=== PATIENT | male | born 1965 | race Caucasian/White ===

== ENCOUNTER → 2017-11-15 | Outpatient (CLI) | payer MEDICARE ==
--- NOTE | 2017-11-17 10:02 | MR ---
EXAMINATION TYPE: MR brain/cspine wo/w DATE OF EXAM: 11/15/2017 COMPARISON: 03/16/2008 HISTORY: Body twitching, pt states Parkinsons runs in the family TECHNIQUE: Multiplanar, multisequence images of the brain and brainstem is performed without and with IV contras t, utilizing 9.5 mL intravenous Gadavist . FINDINGS: Diffusion weighted images demonstrate no evidence of a recent infarct or other diffusion ab normalityThe ventricular system and cisternal spaces are normal in size and appearance. The brain vo lume is age appropriate. Midline structures demonstrate normal morphology. The craniocervical junction appears within normal limits. Post contrast images demonstrate no abnormal enhancement. The dural venous sinuses appear pa tent. There are severe changes of chronic sinusitis WHITE MATTER: There are approximately 20 areas of abnormal signal the white matter. No lesions perpendicular to system. No callosal lesions. No enhancing lesions Lesions all measure less than 5 mm. IMPRESSION: 1. Severe chronic sinusitis. 2. Mild nonspecific white matter changes can be seen with migraine headaches, hypertension, remote mi crovascular ischemia. Demyelinating process not excluded. EXAMINATION TYPE: MR brain/cspine wo/w DATE OF EXAM: 11/15/2017 COMPARISON: NONE HISTORY: Body twitching, pt states Parkinsons runs in the family TECHNIQUE: T1 sagittal and coronal, T2 sagittal, and gradient echo axial, postcontrast T1 axial and s agittal views of the cervical spine are submitted. Contrast: 9.5 mL Gadavist FINDINGS: The cranial cervical junction is preserved. There is no abnormal signal seen within the sp inal cord or paraspinal soft tissues. There is a loss of the normal cervical lordosis with moderate to severe degenerative disc disease inv olving levels C3-C7. At C2-3 there is facet arthropathy and mild posterior spondylosis with minimal disc bulging. No chris inal encroachment or canal stenosis. At C3-4 there is uncovertebral joint hypertrophy is marked on the right with facet arthropathy result in moderate to severe right foraminal encroachment. No disc herniation or canal stenosis. No foramin al encroachment. At C4-5 there is central broad-based disc bulging slightly greater paracentrally the left. Productive uncovertebral joint hypertrophy and mild facet arthropathy. There is borderline central stenosis and moderate bilateral foraminal encroachment greater on the left. At C5-6 there is diffuse disc bulging and right paracentral and lateral focal disc herniation capped by spur with uncovertebral joint projecting resulting in spinal cord contact along the anterior later al margin on the right and severe right-sided foraminal encroachment. There is moderate to severe lef t foraminal encroachment. There is moderate central canal stenosis. At C6-7 there is diffuse disc bulging with uncovertebral joint hypertrophy. Moderate to severe bilate ral foraminal encroachment greater on the left with facet arthropathy. No central stenosis. At C7-T1 there is minimal posterior disc bulging and spondylosis. No foraminal encroachment or canal stenosis. No disc herniation Incidental note is made of a left thyroid nodule measuring 7 mm. IMPRESSION: 1. Multilevel severe degenerative disc disease with hypertrophic changes of the uncovertebral joints result in multilevel foraminal encroachment. 2. There is a focal disc osteophyte complex paracentrally and laterally to the right at C5-C6 which r esults in severe right-sided foraminal encroachment likely compressing the nerve root. There also is anterior lateral impression upon the spinal cord at this level. 3. Multilevel significant foraminal encroachment as discussed above.
--- NOTE | 2017-11-17 10:50 | MR ---
EXAMINATION TYPE: MR lumbar spine wo/w con DATE OF EXAM: 11/15/2017 COMPARISON: 11/16/2009 Contrast: 9.5 abnormal Gadavist HISTORY: Body twitching, pt states Parkinsons runs in the family TECHNIQUE: T1 and T2 axial and sagittal, postcontrast T1 axial and sagittal images of the lumbar spi ne are submitted. FINDINGS: There is no abnormal signal seen within the visualized spinal cord or paraspinal soft tissu es. At L1-2 there is broad-based central disc bulging with mild effacement of thecal sac. Hypertrophic ch anges facets. Neural foramina remain patent. At L2-3 there is compressive disc bulging greater paracentrally and laterally the right. There is fac et arthropathy but no central neural foramina remain patent. At L3-4 there is circumferential disc bulging and hypertrophic change of the facets. No discrete sahil iation, canal stenosis or foraminal At L4-5 there is circumferential disc bulging. There is advanced facet arthropathy. There is moderate bilateral foraminal encroachment and mild central stenosis. Previously seen disc protrusion less we ll-seen on today's exam. At L5-S1 there is facet arthropathy. No disc herniation or canal stenosis. No foraminal encroachment . There is multilevel moderate degenerative disc disease extending from levels L1-S1. Loss of disc sign al and space noted. Findings are similar to the prior exam. IMPRESSION: 1. Multilevel degenerative disc disease and disc bulging as discussed above. Most marked findings see n at L4-5 with mild central stenosis and moderate bilateral foraminal encroachment. 2. Multilevel facet arthropathy.
== END ==
LOC: RADMRIMAIN 15:54
PROVIDERS: ATTEND Nurse Practitioner Adult Health
DX: R25.1 Tremor, unspecified (principal); R53.1 Weakness; Z86.73 Personal history of transient ischemic attack (TIA), and cerebral infarction without residual deficits; G25.2 Other specified forms of tremor; J32.9 Chronic sinusitis, unspecified
CPT/HCPCS: 82565; 70553; 72156; 72158; 36415; A9581

== ENCOUNTER → 2017-11-18 | Outpatient (CLI) | payer MEDICARE ==
--- NOTE | 2017-11-18 21:13 | MR ---
EXAMINATION TYPE: MR thoracic spine wo/w con DATE OF EXAM: 11/18/2017 COMPARISON: NONE HISTORY: Leg twitching per order. TECHNIQUE: Multiplanar, multisequence imaging of thoracic spine is performed without and with IV cont rast, patient was injected with 9 cc of IV Gadavist. FINDINGS: Coronal images show levoconvex scoliotic curvature centered in the upper to mid thoracic sp ine. Spinal cord shows normal course, caliber, and signal as it courses the thoracic spine. Vertebra l body heights are satisfactory. And disc space heights are fairly well maintained. No large posterio r disc herniations are seen on sagittal images. Mild multilevel anterior spurring is present. Bone ma rrow signal intensity is preserved. No suspicious enhancement is noted. Axial images at C7-T1 level show tiny left paracentral disc protrusion minimally effacing the anterol ateral thecal sac on axial image 20, bilateral neural foramina are patent. Axial images at T10-T11 level shows central disc protrusion mildly effaces the anterior thecal sac. T here is moderate ligamentum flavum hypertrophy bilaterally effacing posterior lateral thecal sac on a xial image 8. And bilateral neural foramina are patent. Axial images at T11-T12 level shows central disc protrusion minimally effacing anterior thecal sac an d mild ligamentum flavum hypertrophy bilaterally. Bilateral Neural foramina are patent. Remainder thoracic levels are felt within normal limits. Visualized portion of the thorax and upper a bdomen is unremarkable. IMPRESSION: Mild multilevel degenerative changes in thoracic spine as detailed above. No suspicious mass or enhancement is present.
--- NOTE | 2017-11-18 21:16 | MR ---
EXAMINATION TYPE: MR sacrum/coccyx wo/w con DATE OF EXAM: 11/18/2017 COMPARISON: CT abdomen and pelvis September 29, 2013 HISTORY: Leg twitching CONTRAST: Standard multiplanar, multisequence MRI departmental protocol utilizing 9 mL intravenous Gadavist mahad olinium contrast. Imaging is performed of the pelvis focusing and sacrum and coccyx. FINDINGS: The visualized sacrum shows no suspicious edema. Sacroiliac joints are symmetric and mainta ined. Postcontrast images show no suspicious enhancement. There is a partially sacralized left L5 seg ment incidentally noted seen better on comparison CT. There are Diverticula in the visualized portion of the sigmoid colon in the pelvis redemonstrated. Vi sualized portion of the bladder is felt within normal limits. No concerning pelvic fluid collection o r adenopathy is seen. Prostate gland is not enlarged. No suspicious enhancement is present. IMPRESSION: No suspicious sacral mass or enhancement.
== END | disposition home or self-care (01) ==
LOC: RADMRIMAIN 16:50
PROVIDERS: ATTEND Nurse Practitioner Adult Health
DX: M47.814 Spondylosis without myelopathy or radiculopathy, thoracic region (principal); R25.1 Tremor, unspecified; R53.1 Weakness; Z86.73 Personal history of transient ischemic attack (TIA), and cerebral infarction without residual deficits
CPT/HCPCS: 72157; 72197; A9581

== ENCOUNTER 2018-08-11 11:45 | Inpatient (IN) | payer MEDICARE ==
[2018-08-11] MEDS ORDERED: HYDROmorphone 0.5 MG/0.5 ML SYRINGE IVP STA (12:43)
[2018-08-11] MEDS ORDERED: ONDANSETRON 4 MG/2 ML VIAL IVP STA (12:43)
[2018-08-11] MEDS ORDERED: SODIUM CHLORIDE 0.9% 1,000 ML IV STA (12:43)
[2018-08-11 13:32] LABS: Appearance,Urine Clear (Clear); Bilirubin,Urine Negative (Negative); Blood,Urine Negative (Negative); Color,Urine Yellow; Glucose,Urine (UA) Negative (Negative); Ketones,Urine Negative (Negative); Leukocyte Esterase,Urine Negative (Negative); Nitrite,Urine Negative (Negative); PH, Urine 6.5 (5.0-8.0); Protein,Urine Negative (Negative); Specific Gravity,Urine 1.017 (1.001-1.035); Urobilinogen,Urine <2.0 mg/dL (<2.0)
[2018-08-11 13:33] LABS: Basophils % (A) 0 %; Eosinophils # (A) 0.3 k/uL (0-0.7); Eosinophils % (A) 3 %; HCT 48.8 % (39.0-53.0); HGB 16.6 gm/dL (13.0-17.5); Lymphocytes # (A) 2.3 k/uL (1.0-4.8); Lymphocytes % (A) 23 %; MCH 29.7 pg (25.0-35.0); MCV 87.4 fL (80.0-100.0); Mean Platelet Volume 8.2; Monocytes # (A) 0.5 k/uL (0-1.0); Monocytes % (A) 5 %; Neutrophils % (A) 68 %; Platelet Count 191 k/uL (150-450); RBC 5.59 m/uL (4.30-5.90); RDW 12.4 % (11.5-15.5); WBC 10.2 k/uL (3.8-10.6)
[2018-08-11 13:40] LABS: ALT 29 U/L (21-72); AST 34 U/L (17-59); African American GFR (CKD) >90 (>60 ml/min/1.73 sqM); Albumin 4.3 g/dL (3.5-5.0); Alkaline Phosphatase 61 U/L (38-126); Amylase 61 U/L (30-110); Anion Gap 9 mmol/L; Blood Urea Nitrogen 9 mg/dL (9-20); Carbon Dioxide 27 mmol/L (22-30); Chloride 102 mmol/L (98-107); Glucose 80 mg/dL (74-99); Lipase 56 U/L (23-300); Sodium 138 mmol/L (137-145); Total Bilirubin 1.2 mg/dL (0.2-1.3); Total Protein 7.6 g/dL (6.3-8.2)
[2018-08-11 13:47] LABS: Potassium 4.4 mmol/L (3.5-5.1)
--- NOTE | 2018-08-11 13:47 | ED ---
Abdominal Pain HPI - General Chief Complaint: Abdominal Pain Stated Complaint: lump in groin Time Seen by Provider: 08/11/18 12:35 Source: patient Mode of arrival: ambulatory Limitations: no limitations - History of Present Illness Initial Comments: 52-year-old male patient presents to the emergency department today for evaluation of right lower quadrant and right flank pain. Patient states the pain started on Saturday evening after eating a meal. States movement makes the pain worse and improves somewhat with rest. The pain is constant. States he can feel a lump in his umbilical region which was not there before. Patient states that the pain seems to be worsening. States he has been nauseated but has not vomited. States he is having normal bowel movements with no hematochezia or melena. States he has not eaten today due to lack of appetite. Denies any fever or chills. Denies any history of abdominal surgery. Denies any hematuria, dysuria, urinary urgency, urinary frequency. Patient denies any recent rash, shortness breath, chest pain, back pain, numbness, tingling, dizziness, weakness, headache, visual changes, or any other complaints. - Related Data Home Medications Medication Instructions Recorded Confirmed ALPRAZolam [Xanax] 0.5 mg PO BID PRN 08/11/18 08/11/18 Cyclobenzaprine [Flexeril] 5 - 10 mg PO TID PRN 08/11/18 08/11/18 Lisinopril [Zestril] 10 mg PO DAILY 08/11/18 08/11/18 amLODIPine [Norvasc] 5 mg PO DAILY 08/11/18 08/11/18 Allergies Allergy/AdvReac Type Severity Reaction Status Date / Time hydrocodone bitartrate Allergy Itching Verified 08/11/18 12:41 [From Vicodin] Review of Systems ROS Statement: Those systems with pertinent positive or pertinent negative responses have been documented in the HPI. ROS Other: All systems not noted in ROS Statement are negative. Past Medical History Past Medical History: Asthma, Hyperlipidemia, Hypertension, Osteoarthritis (OA) Additional Past Medical History / Comment(s): supposed to take blood pressure med & chol. med. 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, HYDROCELE, VASECTOMY Past Anesthesia/Blood Transfusion Reactions: No Reported Reaction Past Psychological History: No Psychological Hx Reported Smoking Status: Never smoker Past Alcohol Use History: Occasional Past Drug Use History: None Reported - Past Family History Mother Family Medical History: Deep Vein Thrombosis (DVT) Father Family Medical History: Cancer Additional Family Medical History / Comment(s): colon General Exam Limitations: no limitations General appearance: alert, in no apparent distress, other (Physical well- developed, well-nourished adult male patient in no acute distress. Vital signs upon presentation are temperature 99.5F, pulse 78, respirations 18, blood pressure 143/96, pulse ox 96% on room air.) Eye exam: Present: normal appearance, PERRL, EOMI. Absent: scleral icterus, conjunctival injection, periorbital swelling ENT exam: Present: normal exam, normal oropharynx, mucous membranes moist Respiratory exam: Present: normal lung sounds bilaterally. Absent: respiratory distress, wheezes, rales, rhonchi, stridor Cardiovascular Exam: Present: regular rate, normal rhythm, normal heart sounds. Absent: systolic murmur, diastolic murmur, rubs, gallop, clicks GI/Abdominal exam: Present: soft, tenderness (Midepigastric, Right upper quadrant, right lower quadrant tenderness. Worse in the right lower quadrant.), guarding (Mild), normal bowel sounds. Absent: distended, rebound, rigid Back exam: Present: normal inspection. Absent: CVA tenderness (R), CVA tenderness (L) Neurological exam: Present: alert, oriented X3, CN II-XII intact Psychiatric exam: Present: normal affect, normal mood Skin exam: Present: warm, dry, intact, normal color. Absent: rash Course Vital Signs 08/11/18 08/11/18 08/11/18 11:54 13:54 15:00 Temperature 99.5 F Pulse Rate 78 83 91 Respiratory 18 16 16 Rate Blood Pressure 143/96 147/99 168/109 O2 Sat by Pulse 96 98 96 Oximetry Medical Decision Making - Medical Decision Making 52-year-old male patient percents to the emergency department today for evaluation of right-sided abdominal pain and nausea that started 2 days ago. Physical examination did reveal mild abdominal guarding with right upper and right lower abdominal tenderness especially to the right lower quadrant. No CVA tenderness. Labs reviewed and were unremarkable. Normal white blood cell, and CT abdomen and pelvis was obtained and did show evidence for appendiceal dilatation with some mild surrounding inflammatory changes consistent with acute appendicitis, more significant however is inflammation and bowel wall thickening in the cecum with a possible mass measuring 3 cm. Patient was started on Zosyn for possible infection. My attending Dr. Khan did discuss the case with on- call surgeon Dr. Wyatt who will admit for surgical evaluation. I did discuss all findings, results, plan with the patient, he is agreeable. - Lab Data Result diagrams: 08/11/18 13:01 08/11/18 13:01 Lab Results 08/11/18 08/11/18 08/11/18 Range/Units 13: 13: 13:01 WBC 10.2 (3.8-10.6) k/uL RBC 5.59 (4.30-5.90) m/uL Hgb 16.6 (13.0-17.5) gm/dL Hct 48.8 (39.0-53.0) % MCV 87.4 (80.0-100.0) fL MCH 29.7 (25.0-35.0) pg MCHC 34.0 (31.0-37.0) g/dL RDW 12.4 (11.5-15.5) % Plt Count 191 (150-450) k/uL Neutrophils % 68 % Lymphocytes % 23 % Monocytes % 5 % Eosinophils % 3 % Basophils % 0 % Neutrophils # 7.0 (1.3-7.7) k/uL Lymphocytes # 2.3 (1.0-4.8) k/uL Monocytes # 0.5 (0-1.0) k/uL Eosinophils # 0.3 (0-0.7) k/uL Basophils # 0.0 (0-0.2) k/uL Sodium 138 (137-145) mmol/L Potassium 4.4 (3.5-5.1) mmol/L Chloride 102 (98-107) mmol/L Carbon Dioxide 27 (22-30) mmol/L Anion Gap 9 mmol/L BUN 9 (9-20) mg/dL Creatinine 0.93 (0.66-1.25) mg/dL Est GFR (CKD-EPI)AfAm >90 (>60 ml/min/1.73 sqM) Est GFR (CKD-EPI)NonAf >90 (>60 ml/min/1.73 sqM) Glucose 80 (74-99) mg/dL Plasma Lactic Acid Lenny 1.1 (0.7-2.0) mmol/L Calcium 9.0 (8.4-10.2) mg/dL Total Bilirubin 1.2 (0.2-1.3) mg/dL AST 34 (17-59) U/L ALT 29 (21-72) U/L Alkaline Phosphatase 61 (38-126) U/L Total Protein 7.6 (6.3-8.2) g/dL Albumin 4.3 (3.5-5.0) g/dL Amylase 61 (30-110) U/L Lipase 56 (23-300) U/L Urine Color Urine Appearance (Clear) Urine pH (5.0-8.0) Ur Specific [place] (1.001-1.035) Urine Protein (Negative) Urine Glucose (UA) (Negative) Urine Ketones (Negative) Urine Blood (Negative) Urine Nitrite (Negative) Urine Bilirubin (Negative) Urine Urobilinogen (<2.0) mg/dL Ur Leukocyte Esterase (Negative) 08/11/18 Range/Units 13:01 WBC (3.8-10.6) k/uL RBC (4.30-5.90) m/uL Hgb (13.0-17.5) gm/dL Hct (39.0-53.0) % MCV (80.0-100.0) fL MCH (25.0-35.0) pg MCHC (31.0-37.0) g/dL RDW (11.5-15.5) % Plt Count (150-450) k/uL Neutrophils % % Lymphocytes % % Monocytes % % Eosinophils % % Basophils % % Neutrophils # (1.3-7.7) k/uL Lymphocytes # (1.0-4.8) k/uL Monocytes # (0-1.0) k/uL Eosinophils # (0-0.7) k/uL Basophils # (0-0.2) k/uL Sodium (137-145) mmol/L Potassium (3.5-5.1) mmol/L Chloride (98-107) mmol/L Carbon Dioxide (22-30) mmol/L Anion Gap mmol/L BUN (9-20) mg/dL Creatinine (0.66-1.25) mg/dL Est GFR (CKD-EPI)AfAm (>60 ml/min/1.73 sqM) Est GFR (CKD-EPI)NonAf (>60 ml/min/1.73 sqM) Glucose (74-99) mg/dL Plasma Lactic Acid Lenny (0.7-2.0) mmol/L Calcium (8.4-10.2) mg/dL Total Bilirubin (0.2-1.3) mg/dL AST (17-59) U/L ALT (21-72) U/L Alkaline Phosphatase (38-126) U/L Total Protein (6.3-8.2) g/dL Albumin (3.5-5.0) g/dL Amylase (30-110) U/L Lipase (23-300) U/L Urine Color Yellow Urine Appearance Clear (Clear) Urine pH 6.5 (5.0-8.0) Ur Specific [place] 1.017 (1.001-1.035) Urine Protein Negative (Negative) Urine Glucose (UA) Negative (Negative) Urine Ketones Negative (Negative) Urine Blood Negative (Negative) Urine Nitrite Negative (Negative) Urine Bilirubin Negative (Negative) Urine Urobilinogen <2.0 (<2.0) mg/dL Ur Leukocyte Esterase Negative (Negative) - Radiology Data Radiology results: report reviewed, image reviewed Computed tomography scan of the abdomen and pelvis with contrast was obtained. Report was reviewed in its entirety. Impression by Dr. Melgoza shows focal moderate to severe colitis involving the cecum primary for underlying cecal mass or neoplasm causing appendiceal dilatation. Disposition Clinical Impression: Acute appendicitis, Mass of cecum Disposition: ADMITTED IP TO THIS [facility] Condition: Serious Referrals: Urbano Arguello MD [Primary Care Provider] - 1-2 days Decision to Admit Reason: Admit from EC Decision Date: 08/11/18 Decision Time: 16:21
--- NOTE | 2018-08-11 14:30 | CT ---
EXAMINATION TYPE: CT abdomen pelvis w con DATE OF EXAM: 08/11/2018 COMPARISON: CT abdomen and pelvis September 29, 2013 HISTORY: Rt sided pain CT DLP: 921.1 mGycm, Automated Exposure Control for Dose Reduction was Utilized. CONTRAST: CT scan of the abdomen and pelvis is performed without oral but with IV Contrast, patient injected wi th 100 mL of Isovue 300. FINDINGS: LUNG BASES: There is patchy bibasilar linear atelectasis now identified.. LIVER/GB: Liver remains diffusely low dense consistent with fatty infiltration. PANCREAS: No significant abnormality is seen. SPLEEN: No significant abnormality is seen. ADRENALS: No significant abnormality is seen. KIDNEYS: No significant abnormality is seen. BOWEL: Evaluation of bowel suboptimal secondary to lack of enteric contrast. Small hiatal hernia is p resent. Stomach is poorly distended. There is no suspicious small or large bowel dilatation. There is moderate to severe wall thickening with moderate ill-defined fluid and fat stranding involving the c ecum and terminal ileum. Appendix is dilated up to 11 mm with perhaps mild surrounding fat but mucosa l enhancement. I am suspicious for underlying cecal mass measuring roughly 3.7 x 2.7 cm axial image 5 3. All findings new from 2014 CT. Redemonstration of diverticula in the left and to greater degree in the sigmoid colon without new diverticulitis. PROSTATE/SEMINAL VESICLES: Some central calcifications in the prostate gland are present. Left-sided pelvic phlebolith axial image 83 is redemonstrated. LYMPH NODES: No greater than 1cm abdominal or pelvic lymph nodes are appreciated. OSSEOUS STRUCTURES: Mild to moderate multilevel spurring is seen. OTHER: No significant additional abnormality is seen. IMPRESSION: There is a focal moderate to severe colitis involving the cecum but I am worried for unde rlying cecal mass or neoplasm causing appendiceal dilatation. Critical results communicated to ordering ER physician culinary assistant via telephone at time of dictation
[2018-08-11] MEDS ORDERED: PIPERACILLIN-TAZOBACTAM 3.375 GM in SODIUM CHLORIDE 0.9% 100 ML IVPB STA (14:34)
[2018-08-11] MEDS ORDERED: HYDROmorphone 2 MG/ML 1 ML SYRINGE IVP STA (15:03)
[2018-08-11] MEDS ORDERED: LISINOPRIL 10 MG TAB PO STA (16:17)
[2018-08-11] MEDS ORDERED: ONDANSETRON 4 MG/2 ML VIAL IVP PRN (16:18)
[2018-08-11] MEDS ORDERED: NALOXONE 0.4 MG/ML 1 ML VIAL IV PRN (16:18)
[2018-08-11] MEDS ORDERED: IOPAMIDOL-300 CONTRAST 30 ML VIAL (ORAL USE) PO PRN (16:38)
--- NOTE | 2018-08-11 16:57 | P.PN ---
Progress Note - Text Progress Note Date: 08/11/18 Patient's CAT scan was reviewed. He'll be undergoing repeat CAT scan with oral contrast only to evaluate for possible cecal mass.
[2018-08-11] MEDS: SODIUM CHLORIDE 0.9% 1,000 ML IV SCH (17:04)
[2018-08-11] MEDS: HYDROmorphone 1 MG/ML 1 ML SYRINGE IVP PRN ×2 (18:57→22:58)
--- NOTE | 2018-08-11 19:01 | CT ---
EXAMINATION TYPE: CT abdomen pelvis wo con DATE OF EXAM: 08/11/2018 COMPARISON: Today HISTORY: Cecal mass. Abdominal pain CT DLP: 782 mGycm Automated exposure control for dose reduction was used. TECHNIQUE: Helical acquisition of images was performed from the lung bases through the pelvis. FINDINGS: There is some patchy atelectasis at the lung bases. Heart size is normal. There is no pericardial eff usion. There is no pleural effusion. Liver spleen pancreas gallbladder appear normal. Stomach appears normal. There is oral contrast exten ding down to the cecum. There is no adrenal mass. There is dilute contrast in the renal collecting systems from previous cont rast injection. The ureters are not dilated. Bladder distends smoothly without contrast. There is no inguinal hernia. There is no free fluid in the pelvis. There are numerous sigmoid diverticula. There are multiple scattered diverticula in the remainder of the colon. There is fat stranding and inflammatory changes around the cecum and there is also dilated fluid-fill ed appendix that measures 1.4 cm. I see no sign of free air. There is no free fluid in the pelvis. Th ere is homogeneous soft tissue density at the cecal tip that measures 5 x 3 cm and suggestive of a ce renetta mass. Lumbar vertebra have normal alignment. There is posterior disc herniation at L1-2 with calcification. There is no compression fracture. IMPRESSION: INFLAMMATORY CHANGES IN THE RIGHT LOWER QUADRANT AROUND THE CECUM AND APPENDIX. DILATED APPENDIX. CEC AL MASS. THIS COULD RELATE TO TUMOR OR APPENDICITIS INFLAMMATORY PROCESS. FOLLOW-UP IS RECOMMENDED. N O CHANGE COMPARED TO EXAM EARLIER TODAY. NO BOWEL OBSTRUCTION. THE EXTENSIVE INFLAMMATORY CHANGES RAISE THE POSSIBILITY OF PERFORATED APPENDICITIS. COLONIC DIVERTICULOSIS. PATCHY ATELECTASIS AT THE LUNG BASES UNCHANGED.
[2018-08-11] MEDS: PIPERACILLIN-TAZOBACTAM 3.375 GM in SODIUM CHLORIDE 0.9% 100 ML IVPB SCH (22:58)
[2018-08-12] MEDS: HYDROmorphone 1 MG/ML 1 ML SYRINGE IVP PRN ×5 (02:22→21:35)
[2018-08-12] MEDS: SODIUM CHLORIDE 0.9% 1,000 ML IV SCH ×2 (07:10→23:14)
[2018-08-12] MEDS: PIPERACILLIN-TAZOBACTAM 3.375 GM in SODIUM CHLORIDE 0.9% 100 ML IVPB SCH ×3 (07:11→23:13)
--- NOTE | 2018-08-12 12:52 | P.GSHP ---
History of Present Illness H&P Date: 08/12/18 Chief Complaint: Abdominal pain This is a 52-year-old male who was admitted to the hospital with abdominal pain. Patient states that he had significant abdominal pain last Saturday. He thought he may have had diverticulitis. The patient improved Saturday. However the patient had increased pain on Saturday. He has been to the hospital. Patient's found have extensive inflammatory changes in the cecum and a dilated appendix. There is a question of a possible cecal mass on his CAT scan. The patient states he is hungry. He denies any nausea. He's had no fevers. Past Medical History Past Medical History: Asthma, Hyperlipidemia, Hypertension, Osteoarthritis (OA) Additional Past Medical History / Comment(s): Diverticulosis History of Any Multi-Drug Resistant Organisms: None Reported Past Surgical History: Heart Catheterization, Orthopedic Surgery Additional Past Surgical History / Comment(s): rotator cuff surg., had part of right lung removed as an , HYDROCELE, VASECTOMY Past Anesthesia/Blood Transfusion Reactions: No Reported Reaction Past Psychological History: No Psychological Hx Reported Smoking Status: Never smoker Past Alcohol Use History: Occasional Past Drug Use History: None Reported - Past Family History Mother Family Medical History: Deep Vein Thrombosis (DVT) Father Family Medical History: Cancer Additional Family Medical History / Comment(s): colon Medications and Allergies Home Medications Medication Instructions Recorded Confirmed Type ALPRAZolam [Xanax] 0.5 mg PO BID PRN 08/11/18 08/11/18 History Cyclobenzaprine [Flexeril] 5 - 10 mg PO TID PRN 08/11/18 08/11/18 History Lisinopril [Zestril] 10 mg PO DAILY 08/11/18 08/11/18 History amLODIPine [Norvasc] 5 mg PO DAILY 08/11/18 08/11/18 History Allergies Allergy/AdvReac Type Severity Reaction Status Date / Time hydrocodone bitartrate Allergy Itching Verified 08/11/18 12:41 [From Vicodin] Surgical - Exam Vital Signs Temp Pulse Resp BP Pulse Ox 99.5 F 78 18 143/96 96 08/11/18 11:54 08/11/18 11:54 08/11/18 11:54 08/11/18 11:54 08/11/18 11:54 - General well developed, well nourished, no distress - Eyes PERRL - ENT normal pinna - Neck no masses - Respiratory normal expansion - Cardiovascular Rhythm: regular - Abdomen Mild right-sided abdominal pain. There is no rebound or guarding. There is no evidence of any peritoneal signs. Abdomen: soft Results - Labs 08/11/18 13:01 08/11/18 13:01 Diabetes panel 08/11/18 Range/Units 13:01 Sodium 138 (137-145) mmol/L Potassium 4.4 (3.5-5.1) mmol/L Chloride 102 (98-107) mmol/L Carbon Dioxide 27 (22-30) mmol/L BUN 9 (9-20) mg/dL Creatinine 0.93 (0.66-1.25) mg/dL Glucose 80 (74-99) mg/dL Calcium 9.0 (8.4-10.2) mg/dL AST 34 (17-59) U/L ALT 29 (21-72) U/L Alkaline Phosphatase 61 (38-126) U/L Total Protein 7.6 (6.3-8.2) g/dL Albumin 4.3 (3.5-5.0) g/dL Calcium panel 08/11/18 Range/Units 13:01 Calcium 9.0 (8.4-10.2) mg/dL Albumin 4.3 (3.5-5.0) g/dL Pituitary panel 08/11/18 Range/Units 13:01 Sodium 138 (137-145) mmol/L Potassium 4.4 (3.5-5.1) mmol/L Chloride 102 (98-107) mmol/L Carbon Dioxide 27 (22-30) mmol/L BUN 9 (9-20) mg/dL Creatinine 0.93 (0.66-1.25) mg/dL Glucose 80 (74-99) mg/dL Calcium 9.0 (8.4-10.2) mg/dL Adrenal panel 08/11/18 Range/Units 13:01 Sodium 138 (137-145) mmol/L Potassium 4.4 (3.5-5.1) mmol/L Chloride 102 (98-107) mmol/L Carbon Dioxide 27 (22-30) mmol/L BUN 9 (9-20) mg/dL Creatinine 0.93 (0.66-1.25) mg/dL Glucose 80 (74-99) mg/dL Calcium 9.0 (8.4-10.2) mg/dL Total Bilirubin 1.2 (0.2-1.3) mg/dL AST 34 (17-59) U/L ALT 29 (21-72) U/L Alkaline Phosphatase 61 (38-126) U/L Total Protein 7.6 (6.3-8.2) g/dL Albumin 4.3 (3.5-5.0) g/dL - Imaging CT scan - abdomen: report reviewed (1.4 cm dilated appendix. Significant cecal inflammation. Question of possible cecal mass.) Assessment and Plan Assessment: Right-sided abdominal pain with significant cecal inflammation and dilated appendix. This may be due to a chronic appendicitis. I recommended observation this point. The patient does not appear to be septic. His white count is normal. His vital signs are normal. He will continue IV antibiotics. We will plan for interval appendectomy once his clinical condition improves. I discussed with the patient and his family that if he has any significant changes in this clinical edition he may require exploratory laparotomy with right colectomy
[2018-08-12 14:03] VITALS: BMI 29.7
[2018-08-12] MEDS ORDERED: ALPRAZolam 0.5 MG TAB PO PRN (16:37)
--- NOTE | 2018-08-12 16:48 | P.CONS ---
History of Present Illness - Reason for Consult Consult date: 08/12/18 Consult for medical management of hypertension and asthma Requesting physician: Manuelito Wyatt - Chief Complaint Consult medical management of hypertension and asthma - History of Present Illness The patient is a 52-year-old male was admitted to general surgery service under Dr. Wyatt with abdominal pain workup with CT abdomen and pelvis suggested the 1.46 and a dilated appendix with cecal inflammation with questionable cecal mass. The patient was started on IV antibiotics with Zosyn and has been treated supportively with Dilaudid and Zofran for pain and nausea respectively. He is currently on clear liquid diet without any difficulty, he reports mild abdominal pain at this time reports that the pain medication is working well. The patient presented history of hypertension and asthma and reports that both are pretty well controlled, he denies any chest pain or shortness of breath, denies any wheezes or cough. 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, HYDROCELE, VASECTOMY Past Anesthesia/Blood Transfusion Reactions: No Reported Reaction Past Psychological History: No Psychological Hx Reported Smoking Status: Never smoker Past Alcohol Use History: Occasional Past Drug Use History: None Reported - Past Family History Mother Family Medical History: Deep Vein Thrombosis (DVT) Father Family Medical History: Cancer Additional Family Medical History / Comment(s): colon Medications and Allergies Home Medications Medication Instructions Recorded Confirmed Type ALPRAZolam [Xanax] 0.5 mg PO BID PRN 08/11/18 08/11/18 History Cyclobenzaprine [Flexeril] 5 - 10 mg PO TID PRN 08/11/18 08/11/18 History Lisinopril [Zestril] 10 mg PO DAILY 08/11/18 08/11/18 History amLODIPine [Norvasc] 5 mg PO DAILY 08/11/18 08/11/18 History Allergies Allergy/AdvReac Type Severity Reaction Status Date / Time hydrocodone bitartrate Allergy Itching Verified 08/11/18 12:41 [From Vicodin] Physical Exam Vitals: Vital Signs Temp Pulse Pulse Resp BP BP Pulse Ox 08/12/18 11:44 98 F 78 17 115/84 95 08/12/18 07:15 16 08/12/18 05:00 98.1 F 72 16 111/73 94 L 08/11/18 20:48 98.5 F 91 16 153/98 94 L 08/11/18 18:45 98.1 F 93 18 188/121 97 08/11/18 17:56 98.0 F 86 16 149/69 98 08/11/18 17:04 86 16 159/112 98 Intake and Output 08/12/18 08/12/18 08/12/18 06:59 14:59 22:59 Intake Total 1290 Balance 1290 Intake: Intake, IV Titration 700 Amount Piperacillin-Tazobactam 3 100 .375 gm In Sodium Chloride 0.9% 100 ml @ 25 mls/hr IVPB Q8HR [facility] Rx# :[id number] Sodium Chloride 0.9% 1, 600 000 ml @ 75 mls/hr IV . [id number] [facility]J Rx#:[id number] Oral 590 Other: Voiding Method Toilet # Voids 1 Weight 88.904 kg Constitutional: No acute distress, conversant, pleasant Eyes: Anicteric sclerae, moist conjunctiva, no lid-lag, PERRLA ENMT: NC/AT,Oropharynx clear, no erythema, exudates Neck:Supple, FROM, no masses, or JVD, No carotid bruits; No thyromegaly Lungs: Clear to auscultation, Clear to percussion, Normal respiratory effort, no accessory muscle use Cardiovascular: Heart regular in rate and rhythm, No murmurs, gallops, or rubs no peripheral edema Abdominal: Tender to palpation in the right lower quadrant no guarding, no rebound or rigidity, Normoactive bowel sounds Skin: Normal temperature, tone, texture, turgor, No induration No subcutaneous nodules, No rash, lesions, No ulcers Extremities:No digital cyanosis No clubbing, Pedal pulses intact and symmetrical Radial pulses intact and symmetrical Normal gait and station, No calf tenderness Psychiatric: Alert and oriented to person, place and time, Appropriate affect Intact judgement Neuro: Muscles Strength 5/5 in all 4 extremities, Sensation to light touch grossly present throughout, Cranial nerves II-XII grossly intact. No focal sensory deficits Results CBC & Chem 7: 08/11/18 13:01 08/11/18 13:01 Labs: Microbiology - Last 24 Hours (Table) 08/11/18 13:01 Blood Culture - Preliminary Blood No Growth after 24 hours Assessment and Plan (1) Essential hypertension Current Visit: Yes Status: Acute Code(s): I10 - ESSENTIAL (PRIMARY) HYPERTENSION SNOMED Code(s): 26482653 (2) Asthma Current Visit: Yes Status: Acute Code(s): J45.909 - UNSPECIFIED ASTHMA, UNCOMPLICATED SNOMED Code(s): 368066975 (3) Appendicitis Current Visit: Yes Status: Acute Code(s): K37 - UNSPECIFIED APPENDICITIS SNOMED Code(s): 05904388 (4) Mass of cecum Current Visit: Yes Status: Acute Code(s): K63.9 - DISEASE OF INTESTINE, UNSPECIFIED SNOMED Code(s): 790936415 Plan: The patient is admitted to general surgery service will defer all surgical management and analgesic regimen to the primary team. The patient is here with abdominal pain found to have dilated appendix suggestive of inflammation with a cecal mass. The plan for now is to continue current antibiotics with plans for exploratory laparotomy with likely right sided colectomy. DVT prophylaxis SCDs and heparin I appreciate the opportunity to be involved in ongoing care of this patient. For further questions do not hesitate to contact sound physicians.
--- NOTE | 2018-08-12 22:44 | P.CONS ---
History of Present Illness - Reason for Consult Consult date: 08/12/18 Colitis/appendicitis antibiotic recommendation Requesting physician: Manuelito Wyatt - Chief Complaint Abdominal pain 3 days - History of Present Illness Patient is a 52 year old male presenting to the ER at [facility] with the chief complaints of abdominal pain that can be started on Saturday that is 3 days prior to presentation to the hospital, the patient pain has been mostly in right lower quadrant area patient describing to be sharp almost 10 out of 10 when severe that was not as severe when initially started, there is no significant radiation of the foot did have some associated nausea but no vomiting no diarrhea or constipation patient denies high-grade fever rigors or chills with the symptoms and the patient was evaluated by the ER physician on arrival to the the patient did have CT of abdominal pelvis with concern for significant inflammation/mass and a dilated appendix, CT was subsequently repeated that evening did shows evidence of appendicitis and significant inflammation and no evidence of any perforation, the patient did have low-grade fever of 99.5 however his white count has been normal the patient had been started on Zosyn and admitted to the hospital infectious disease was consulted for further recommendation regarding antibiotic therapy , patient has been started on clear liquid diet which has been tolerating so far Review of Systems Positive points has been mentioned in HPI rest of the systems are negative Past Medical History Past Medical History: Asthma, Hyperlipidemia, Hypertension, Osteoarthritis (OA) Additional Past Medical History / Comment(s): Diverticulosis 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, HYDROCELE, VASECTOMY Past Anesthesia/Blood Transfusion Reactions: No Reported Reaction Past Psychological History: No Psychological Hx Reported Smoking Status: Never smoker Past Alcohol Use History: Occasional Past Drug Use History: None Reported - Past Family History Mother Family Medical History: Deep Vein Thrombosis (DVT) Father Family Medical History: Cancer Additional Family Medical History / Comment(s): colon Medications and Allergies Home Medications Medication Instructions Recorded Confirmed Type ALPRAZolam [Xanax] 0.5 mg PO BID PRN 08/11/18 08/11/18 History Cyclobenzaprine [Flexeril] 5 - 10 mg PO TID PRN 08/11/18 08/11/18 History Lisinopril [Zestril] 10 mg PO DAILY 08/11/18 08/11/18 History amLODIPine [Norvasc] 5 mg PO DAILY 08/11/18 08/11/18 History Allergies Allergy/AdvReac Type Severity Reaction Status Date / Time hydrocodone bitartrate Allergy Itching Verified 08/11/18 12:41 [From Vicodin] Physical Exam Vitals: Vital Signs Temp Pulse Pulse Resp BP BP Pulse Ox 08/12/18 11:44 98 F 78 17 115/84 95 08/12/18 07:15 16 08/12/18 05:00 98.1 F 72 16 111/73 94 L 08/11/18 20:48 98.5 F 91 16 153/98 94 L 08/11/18 18:45 98.1 F 93 18 188/121 97 08/11/18 17:56 98.0 F 86 16 149/69 98 08/11/18 17:04 86 16 159/112 98 Intake and Output 08/12/18 08/12/18 08/12/18 06:59 14:59 22:59 Intake Total 1290 Balance 1290 Intake: Intake, IV Titration 700 Amount Piperacillin-Tazobactam 3 100 .375 gm In Sodium Chloride 0.9% 100 ml @ 25 mls/hr IVPB Q8HR [facility]J Rx# :[id number] Sodium Chloride 0.9% 1, 600 000 ml @ 75 mls/hr IV . [id number] TAJ Rx#:[id number] Oral 590 Other: Voiding Method Toilet # Voids 1 Weight 88.904 kg GENERAL DESCRIPTION: Middle-aged male lying in bed, no distress. No tachypnea or accessory muscle of respiration use. HEENT: Shows Pallor , no scleral icterus. Oral mucous membrane is dry. No pharyngeal erythema or thrush NECK: Trachea central, no thyromegaly. LUNGS: Unlabored breathing. Clear to auscultation anteriorly. No wheeze or crackle. HEART: S1, S2, regular rate and rhythm. No loud murmur ABDOMEN: Soft, mild right lower quadrant tenderness , no guarding or rigidity, no organomegaly EXTREMITIES: No edema of feet. SKIN: No rash, no masses palpable. NEUROLOGICAL: The patient is awake, alert, oriented x3, mood and affect normal Results CBC & Chem 7: 08/11/18 13:01 08/11/18 13:01 Labs: Microbiology - Last 24 Hours (Table) 08/11/18 13:01 Blood Culture - Preliminary Blood No Growth after 24 hours Assessment and Plan Assessment: 1-patient being at Hospital with right lower quadrant pain which has been acute for the patient only 3 days duration with evidence of dilated inflamed appendix and secondary inflammation of the cecum with likely aspiration for his sy mptomatology and will need to cover for enteric gram-negative both aerobes and anaerobes in this patient currently with no clear history of recent antibiotic exposure Plan: 1-blood cultures were obtained and the patient's spike any fever 2-Zosyn 3.375 g every 8 hour 3-gentle IV fluid we will follow up on clinical condition and cultures to further adjust medication if needed Thank you for this consultation will follow this patient along with you Time with Patient: Greater than 30
[2018-08-13] MEDS: HYDROmorphone 1 MG/ML 1 ML SYRINGE IVP PRN ×4 (06:06→22:20)
[2018-08-13] MEDS: LISINOPRIL 10 MG TAB PO SCH (07:28)
[2018-08-13] MEDS: PIPERACILLIN-TAZOBACTAM 3.375 GM in SODIUM CHLORIDE 0.9% 100 ML IVPB SCH ×2 (07:28→16:15)
[2018-08-13] MEDS: SODIUM CHLORIDE 0.9% 1,000 ML IV SCH ×2 (07:28→22:20)
[2018-08-13] MEDS: amLODIPine 5 MG TAB PO SCH (07:29)
[2018-08-13 09:45] LABS: Basophils % (A) 0 %; Eosinophils # (A) 0.3 k/uL (0-0.7); Eosinophils % (A) 4 %; HCT 48.3 % (39.0-53.0); HGB 15.3 gm/dL (13.0-17.5); Lymphocytes # (A) 1.9 k/uL (1.0-4.8); Lymphocytes % (A) 24 %; MCH 28.7 pg (25.0-35.0); MCHC 31.6 g/dL (31.0-37.0); MCV 90.8 fL (80.0-100.0); Mean Platelet Volume 8.3; Monocytes # (A) 0.4 k/uL (0-1.0); Monocytes % (A) 5 %; Neutrophils # (A) 5.4 k/uL (1.3-7.7); Neutrophils % (A) 67 %; Platelet Count 220 k/uL (150-450); RBC 5.32 m/uL (4.30-5.90); RDW 13.1 % (11.5-15.5)
[2018-08-13] MEDS ORDERED: HYDROmorphone 0.5 MG/0.5 ML SYRINGE IVP PRN (12:36)
--- NOTE | 2018-08-13 13:55 | PN ---
PROGRESS NOTE DATE OF SERVICE: 08/13/2018. REASON FOR FOLLOW UP: Colitis/appendicitis. INTERVAL HISTORY: The patient is currently afebrile. The patient's abdominal pain has improved down to about 6 out of 10, and no radiation. The patient denies any nausea, no vomiting. Did have soft to loose bowel movements. No blood or mucus in the stool. PHYSICAL EXAMINATION: Blood pressure is 139/87 with a pulse of 73, temperature 97.6. He is 95% on room air. General description is a middle-aged male lying in bed in no distress. Respiratory system unlabored breathing, clear to auscultation anteriorly. Heart S1, S2. Regular rate and rhythm. ABDOMEN: Soft. Minimally tender. No guarding or rigidity. LABS: Hemoglobin is 15.3, white count 8.0. DIAGNOSTIC IMPRESSION AND PLAN: Patient with abdominal pain with abnormal CT suspicious for acute appendicitis, plus minus the cecal inflammation. Patient is currently responding to Zosyn in view of the amount of inflammation,may benefit from a short course of IV Rocephin and Flagyl in the outpatient setting and monitor clinical course closely. MMODL / IJN: [id number] /
--- NOTE | 2018-08-13 17:05 | P.PN ---
Subjective Progress Note Date: 08/13/18 Patient seen and examined at bedside, doing well, has been up and ambulatory to the bathroom and back. Continues on IV antibiotics, blood pressure appears more controlled today. No acute events overnight Objective - Vital Signs Vital signs: Vital Signs Temp 97.6 F 08/13/18 12:32 Pulse 73 08/13/18 12:32 Resp 18 08/13/18 16:15 BP 139/87 08/13/18 12:32 Pulse Ox 95 08/13/18 12:32 Intake & Output 08/12/18 08/13/18 08/13/18 18:59 06:59 18:59 Intake Total 1700 1180 1300 Balance 1700 1180 1300 Weight 88.904 kg Intake: Intake, IV Titration 750 750 Amount Piperacillin-Tazobactam 3 100 100 .375 gm In Sodium Chloride 0.9% 100 ml @ 25 mls/hr IVPB Q8HR TAJ Rx# :[id number] Sodium Chloride 0.9% 1, 650 650 000 ml @ 75 mls/hr IV . [id number] TAJ Rx#:[id number] Oral 950 1180 550 Other: Voiding Method Toilet Toilet Toilet # Voids 3 2 3 # Bowel Movements 1 1 - Exam Constitutional: No acute distress, conversant, pleasant Eyes: Anicteric sclerae, moist conjunctiva, no lid-lag, PERRLA ENMT: NC/AT,Oropharynx clear, no erythema, exudates Neck:Supple, FROM, no masses, or JVD, No carotid bruits; No thyromegaly Lungs: Clear to auscultation, Clear to percussion, Normal respiratory effort, no accessory muscle use Cardiovascular: Heart regular in rate and rhythm, No murmurs, gallops, or rubs no peripheral edema Abdominal: Tender to palpation in the right lower quadrant no guarding, no rebound or rigidity, Normoactive bowel sounds Skin: Normal temperature, tone, texture, turgor, No induration No subcutaneous nodules, No rash, lesions, No ulcers Extremities:No digital cyanosis No clubbing, Pedal pulses intact and symmetrical Radial pulses intact and symmetrical Normal gait and station, No calf tenderness Psychiatric: Alert and oriented to person, place and time, Appropriate affect Intact judgement Neuro: Muscles Strength 5/5 in all 4 extremities, Sensation to light touch grossly present throughout, Cranial nerves II-XII grossly intact. No focal senso ry deficits - Labs CBC & Chem 7: 08/13/18 08:47 08/11/18 13:01 Labs: Microbiology - Last 24 Hours (Table) 08/11/18 13:01 Blood Culture - Preliminary Blood No Growth after 48 hours Assessment and Plan (1) Essential hypertension Narrative/Plan: * Currently stable on home regimen * continue Norvasc and lisinopril Current Visit: Yes Status: Acute Code(s): I10 - ESSENTIAL (PRIMARY) HYPE RTENSION SNOMED Code(s): 48731300 (2) Asthma Narrative/Plan: * Stable disease without any acute exacerbation Current Visit: Yes Status: Chronic Code(s): J45.909 - UNSPECIFIED ASTHMA, UNCOMPLICATED SNOMED Code(s): 559685951 (3) Appendicitis Narrative/Plan: * Defer management to general surgery continuing antibiotics with Zosyn Current Visit: Yes Status: Acute Code(s): K37 - UNSPECIFIED APPENDICITIS SNOMED Code(s): 07718833 (4) Mass of cecum Narrative/Plan: * Gen. surgery planning for exploratory laparoscopy with likely right sided cholecystectomy Current Visit: Yes Status: Acute Code(s): K63.9 - DISEASE OF INTESTINE, UNSPECIFIED SNOMED Code(s): 954963362 Plan: * Disposition * Patient doing well continue current management
--- NOTE | 2018-08-13 17:35 | P.PN ---
Progress Note - Text Progress Note Date: 08/13/18 The patient states he feels better. His pain has improved. He states his pain is now a 2 out of 10 when he is moving, it is a 0 on atenolol less resting in bed. He is tolerating his clear liquids On exam his vital signs appear stable. His abdomen is soft. There is markedly less tenderness in his abdomen compared to yesterday. Chronic appendicitis. Patient is improving on IV antibiotics. We'll continue antibiotics and plan for outpatient colonoscopy. He will undergo interval appendectomy as an outpatient.
[2018-08-14] MEDS: PIPERACILLIN-TAZOBACTAM 3.375 GM in SODIUM CHLORIDE 0.9% 100 ML IVPB SCH ×2 (00:42→08:51)
[2018-08-14] MEDS: HYDROmorphone 1 MG/ML 1 ML SYRINGE IVP PRN ×2 (06:40→21:12)
[2018-08-14 07:39] LABS: Basophils % (A) 1 %; Eosinophils # (A) 0.5 k/uL (0-0.7); Eosinophils % (A) 7 %; HCT 48.4 % (39.0-53.0); HGB 15.5 gm/dL (13.0-17.5); Lymphocytes # (A) 1.9 k/uL (1.0-4.8); Lymphocytes % (A) 27 %; MCH 28.5 pg (25.0-35.0); MCHC 32.1 g/dL (31.0-37.0); MCV 88.7 fL (80.0-100.0); Mean Platelet Volume 8.3; Monocytes # (A) 0.4 k/uL (0-1.0); Monocytes % (A) 6 %; Neutrophils # (A) 3.9 k/uL (1.3-7.7); Neutrophils % (A) 57 %; Platelet Count 234 k/uL (150-450); RBC 5.46 m/uL (4.30-5.90); RDW 13.2 % (11.5-15.5); WBC 6.9 k/uL (3.8-10.6)
[2018-08-14] MEDS: amLODIPine 5 MG TAB PO SCH (08:51)
[2018-08-14] MEDS: LISINOPRIL 10 MG TAB PO SCH (08:51)
[2018-08-14] MEDS: SODIUM CHLORIDE 0.9% 1,000 ML IV SCH ×2 (08:54→21:24)
[2018-08-14 13:32] LABS: Glucose,Whole Blood 154 mg/dL (75-99)
[2018-08-14] MEDS ORDERED: ALPRAZolam 0.5 MG TAB PO PRN (14:31)
--- NOTE | 2018-08-14 17:12 | P.PN ---
Progress Note - Text Progress Note Date: 08/14/18 The patient feels better. He states his pain is a 1 out of 10. He is hungry and is requesting more food. On exam his vital signs are stable. His abdomen soft. There is no significant tenderness. White count is normal. Chronic appendicitis. Patient will be discharged home tomorrow with IV antibiotic. We will plan for outpatient colonoscopy and then interval appendectomy
[2018-08-14] MEDS: metroNIDAZOLE 500 MG TAB PO SCH ×2 (17:30→21:13)
[2018-08-14] MEDS ORDERED: ALBUTEROL NEBULIZED 2.5 MG/3 ML INHALATION PRN (19:09)
--- NOTE | 2018-08-14 19:12 | P.PN ---
Subjective Progress Note Date: 08/14/18 (Delayed charting patient seen at 1:45 PM) Principal diagnosis: Abdominal pain Patient is a 52-year-old male with a past medical history of asthma, dyslipidemia, hypertension, and diverticulitis who presented with complaints of abdominal pain. He underwent a CT abdomen and pelvis in the ER which suggested a dilated appendix with cecal inflammation and questionable cecal mass. He was started on IV antibiotics with Zosyn and treated conservatively. We are asked to consult for hypertensive management. He is also being seen by infectious disease who changed him to [facility]. Patient seen and examined at bedside. He is feeling very anxious and fidgety today. He denies any significant alcohol use. His abdominal pain is much improved he still feels slight tenderness in his right lower quadrant when he takes a big deep breath. He has been tolerating his liquid diet well. He denies any increased nausea or vomiting. He denies any shortness of breath. He is anxious that he could have a mass. We discussed that colon cancer typically has a very good prognosis and there is no signs of metastatic disease and his CT abdomen and pelvis. He would like surgery. Objective - Vital Signs Vital signs: Vital Signs Temp 97.8 F 08/14/18 13:00 Pulse 86 08/14/18 13:00 Resp 17 08/14/18 13:00 BP 161/101 08/14/18 13:00 Pulse Ox 98 08/14/18 13:00 Intake & Output 08/13/18 08/14/18 08/14/18 18:59 06:59 18:59 Intake Total 1660 2635 Balance 1660 2635 Intake: Intake, IV Titration 750 1035 Amount Piperacillin-Tazobactam 3 100 .375 gm In Sodium Chloride 0.9% 100 ml @ 25 mls/hr IVPB Q8HR [facility]J Rx# :[id number] Sodium Chloride 0.9% 1, 650 1035 000 ml @ 75 mls/hr IV . [id number] TAJ Rx#:[id number] Oral 910 1600 Other: Voiding Method Toilet Toilet Toilet # Voids 3 4 # Bowel Movements 1 1 - Exam General: non toxic, no distress, appears at stated age Derm: warm, dry Head: atraumatic, normocephalic, symmetric Eyes: EOMI, no lid lag, anicteric sclera Mouth: no lip lesion, mucus membranes moist Cardiovascular: S1S2 reg, no murmur, positive posterior tibial pulse bilateral, Lungs: CTA bilateral, no rhonchi, no rales , no accessory muscle use Abdominal: soft, tender to palpation right lower quadrant, no guarding, no ap preciable organomegaly Ext: no gross muscle atrophy, no edema, no contractures Neuro: CN II-XI grossly intact, no focal neuro deficits Psych: Alert, oriented, appropriate affect - Labs CBC & Chem 7: 08/14/18 06:56 08/11/18 13:01 Labs: Abnormal Lab Results - Last 24 Hours (Table) 08/14/18 Range/Units 13:31 POC Glucose (mg/dL) 154 H (75-99) mg/dL Microbiology - Last 24 Hours (Table) 08/11/18 13:01 Blood Culture - Preliminary Blood No Growth after 72 hours Assessment and Plan Assessment: Acute on Chronic appendicitis with possible cecal mass - ID recs regarding antibiotics suggested rocephin and oral flagyl - tolerating full liquid diet - surgery recs: outpatient colonoscopy and appendectomy HTN, controlled - continue current medications - follow BP Asthma, without exacerbation - prn bronchodilators Anxiety - prn abx Home in AM with IV abx DVT prophylaxis: Heparin Discussed with: Patient, nursing, spouse Anticipated discharge: 1-[address]: home A total of 25 minutes was spent on the care of this complex patient more than 50% of the time was spent in counseling and care coordination.
--- NOTE | 2018-08-14 19:38 | PN ---
PROGRESS NOTE DATE OF SERVICE: 08/14/2018. REASON FOR FOLLOWUP: Appendicitis and possible . INTERVAL HISTORY: The patient is currently afebrile. The patient has been breathing comfortably. Abdominal pain has improved. No nausea or vomiting. Has been tolerating diet and no diarrhea. PHYSICAL EXAMINATION: Blood pressure 126/80 with a pulse of 62, temperature 98.4. He is 96% on room air. General description is a middle-aged male lying in bed in no distress. Respiratory system: Unlabored breathing. Clear to auscultation anteriorly. Heart is S1, S2. Regular rate and rhythm. ABDOMEN: Soft, no tenderness. EXTREMITIES: No edema of the feet. LABS: No new labs have been obtained today. DIAGNOSTIC IMPRESSION AND PLAN: Patient with acute appendicitis. The patient really responding to the Zosyn IV antibiotic therapy. Will benefit from a short course of IV Rocephin and Flagyl in the outpatient setting with close outpatient followup. Plan of care was discussed with the on the phone. Once antibiotics arranged, hopefully home in the morning. Continue supportive care. MMODL / IJN: [id number] /
[2018-08-15] MEDS: HYDROmorphone 1 MG/ML 1 ML SYRINGE IVP PRN (01:24)
[2018-08-15] MEDS: amLODIPine 5 MG TAB PO SCH (09:01)
[2018-08-15] MEDS: metroNIDAZOLE 500 MG TAB PO SCH (09:01)
[2018-08-15] MEDS: LISINOPRIL 10 MG TAB PO SCH (09:01)
[2018-08-15 09:43] LABS: Basophils % (A) 0 %; Eosinophils # (A) 0.4 k/uL (0-0.7); Eosinophils % (A) 6 %; HCT 49.4 % (39.0-53.0); HGB 16.6 gm/dL (13.0-17.5); Lymphocytes # (A) 1.2 k/uL (1.0-4.8); Lymphocytes % (A) 20 %; MCH 29.5 pg (25.0-35.0); MCHC 33.6 g/dL (31.0-37.0); MCV 87.7 fL (80.0-100.0); Mean Platelet Volume 7.7; Monocytes # (A) 0.3 k/uL (0-1.0); Monocytes % (A) 5 %; Neutrophils # (A) 4.1 k/uL (1.3-7.7); Neutrophils % (A) 66 %; Platelet Count 287 k/uL (150-450); RBC 5.63 m/uL (4.30-5.90); RDW 12.3 % (11.5-15.5); WBC 6.1 k/uL (3.8-10.6)
--- NOTE | 2018-08-15 11:21 | P.PN ---
Progress Note - Text Progress Note Date: 08/15/18 The patient resting comfortably in his bed. He denies any significant pain. He is tolerating regular diet. On exam his vital signs are stable. His evidence soft. Patiently discharged home today for follow-up in the office next week. We'll plan for outpatient colonoscopy with subsequent interval appendectomy
--- NOTE | 2018-08-15 11:22 | P.DS ---
Providers Date of admission: 08/13/18 10:13 Expected date of discharge: 08/15/18 Attending physician: Manuelito Wyatt Consults: 08/12/18 12:53 Consult Physician Routine Consulting Provider: Abbie Bean Consult Reason/Comments: Medical management Do you want consulting provider notified?: Yes Consult Physician Routine Consulting Provider: Alvaro Guerra Consult Reason/Comments: Chronic appendicitis Do you want consulting provider notified?: Yes Primary care physician: Urbano Arguello [facility] Course: This is a 52-year-old male who was admitted to the hospital with with right lower quadrant pain. His CAT scan performed showed a questionable cecal mass with a dilated appendix. Patient was treated is a chronic appendicitis. He received IV antibiotics. His condition improved. He was discharged home on IV antibiotic. He'll plan for outpatient colonoscopy and interval appendectomy. Patient Condition at Discharge: Serious Plan - Discharge Summary New Discharge Prescriptions: New metroNIDAZOLE [Flagyl] 500 mg PO Q8HR #30 tab cefTRIAXone [Rocephin] 2,000 mg IVP Q24HR #10 vial No Action ALPRAZolam [Xanax] 0.5 mg PO BID PRN PRN Reason: Anxiety amLODIPine [Norvasc] 5 mg PO DAILY Lisinopril [Zestril] 10 mg PO DAILY Cyclobenzaprine [Flexeril] 5 - 10 mg PO TID PRN PRN Reason: Muscle Spasm Discharge Medication List ALPRAZolam [Xanax] 0.5 mg PO BID PRN 08/11/18 [History] Cyclobenzaprine [Flexeril] 5 - 10 mg PO TID PRN 08/11/18 [History] Lisinopril [Zestril] 10 mg PO DAILY 08/11/18 [History] amLODIPine [Norvasc] 5 mg PO DAILY 08/11/18 [History] cefTRIAXone [Rocephin] 2,000 mg IVP Q24HR #10 vial 08/14/18 [Rx] metroNIDAZOLE [Flagyl] 500 mg PO Q8HR #30 tab 08/14/18 [Rx] Follow up Appointment(s)/Referral(s): Urbano Arguello MD [Primary Care Provider] - 1-2 days Alvaro Guerra MD [STAFF PHYSICIAN] - 1 Week Activity/Diet/Wound Care/Special Instructions: IV Antibiotic infusion at [facility]/Dr. Guerra's office - [address] - report Saturday08/16/18 at 12:30 p.m. Discharge Disposition: HOME SELF-CARE
[2018-08-15 12:32] VITALS: BP 143/88; PULSE 67; RESP 16; TEMP 97.7
--- NOTE | 2018-08-15 15:11 | PN ---
PROGRESS NOTE DATE OF SERVICE: 08/15/2018 REASON FOR FOLLOWUP: Appendicitis/cecal inflammation. INTERVAL HISTORY: The patient is currently afebrile. The patient seemed to have some problem with abdominal pain last night, but improved this morning. The patient denies having any nausea or vomiting. No chest pain, shortness of breath or cough. PHYSICAL EXAMINATION: Blood pressure is 143/88 with a pulse of 67, temperature 97.7. He is 97% on room air. General description is a middle-aged male up in the chair in no distress. RESPIRATORY SYSTEM: Unlabored breathing. Clear to auscultation anteriorly. HEART: S1, S2. Regular rate and rhythm. ABDOMEN: Soft. No tenderness. LABS: Hemoglobin 16.6, white count of 6.1. DIAGNOSTIC IMPRESSION AND PLAN: Patient admitted to hospital with abdominal pain diagnosed with appendicitis/cecal inflammation. The patient currently is on Rocephin and oral Flagyl, to continue for another 7-10 days in the outpatient setting with close outpatient followup. All his questions and concerns were answered. MMODL / IJN: [id number] /
--- NOTE | 2018-08-15 19:55 | P.PN ---
Subjective Progress Note Date: 08/15/18 (delayed charting seen at 1200) Principal diagnosis: Abdominal pain Patient is a 52-year-old male with a past medical history of asthma, dyslipidemia, hypertension, and diverticulitis who presented with complaints of abdominal pain. He underwent a CT abdomen and pelvis in the ER which suggested a dilated appendix with cecal inflammation and questionable cecal mass. He was started on IV antibiotics with Zosyn and treated conservatively. We are asked to consult for hypertensive management. He is also being seen by infectious disease who changed him to Flagyl and Rocephin. Patient seen and examined at bedside. Doing well. Up and ambulating in the room. Abdominal pain gone. Tolerating diet. Objective - Vital Signs Vital signs: Vital Signs Temp 97.7 F 08/15/18 11:36 Pulse 67 08/15/18 11:36 Resp 16 08/15/18 11:36 BP 143/88 08/15/18 11:36 Pulse Ox 97 08/15/18 11:36 Intake & Output 08/15/18 08/15/18 08/16/18 06:59 18:59 06:59 Intake Total 1240 350 Balance 1240 350 Intake: Intake, IV Titration 650 350 Amount Sodium Chloride 0.9% 1, 650 300 000 ml @ 75 mls/hr IV . [id number] TAJ Rx#:[id number] cefTRIAXone 2 gm In 50 Sodium Chloride 0.9% 50 ml @ 100 mls/hr IVPB Q24HR TAJ Rx#:[id number] Oral 590 Other: Voiding Method Toilet Toilet # Voids 1 4 # Bowel Movements 1 - Exam General: non toxic, no distress, appears at stated age Derm: warm, dry Head: atraumatic, normocephalic, symmetric Eyes: EOMI, no lid lag, anicteric sclera Mouth: no lip lesion, mucus membranes moist Cardiovascular: S1S2 reg, no murmur, positive posterior tibial pulse bilateral, Lungs: CTA bilateral, no rhonchi, no rales , no accessory muscle use Abdominal: soft, tender to palpation right lower quadrant, no guarding, no appreciable organomegaly Ext: no gross muscle atrophy, no edema, no contractures Neuro: CN II-XI grossly intact, no focal neuro deficits Psych: Alert, oriented, appropriate affect - Labs CBC & Chem 7: 08/15/18 09:11 08/11/18 13:01 Labs: Microbiology - Last 24 Hours (Table) 08/11/18 13:01 Blood Culture - Preliminary Blood No Growth after 96 hours Assessment and Plan Assessment: Acute on Chronic appendicitis with possible cecal mass - ID recs regarding antibiotics suggested rocephin and oral flagyl - tolerating full liquid diet - surgery recs: outpatient colonoscopy and appendectomy HTN, controlled - continue current medications - follow BP Asthma, without exacerbation - prn bronchodilators Anxiety - prn abx Medically optimized for discharge home -Blood pressure medications, anxiety medications, and other home meds reviewed and discharge med rec updated -Patient to follow-up with Dr. Arguello 08/19/18 at 3 PM
== END 2018-08-15 14:33 | disposition home or self-care (01) | DRG 395 ==
LOC: SUPCPDRO 11:45 → EC 11:45 → 3NMEDONC 15:45 → OBSVTOIN 08-13 10:13
PROVIDERS: ADMIT Surgery; ATTEND Surgery
PROC: 05HF33Z Insertion of Infusion Device into Left Cephalic Vein, Percutaneous Approach (ICD-10-PCS; principal; 2018-08-14 16:00)
DX: K36 Other appendicitis (principal); E78.5 Hyperlipidemia, unspecified; J45.909 Unspecified asthma, uncomplicated; I10 Essential (primary) hypertension; F41.9 Anxiety disorder, unspecified; K57.30 Diverticulosis of large intestine without perforation or abscess without bleeding; M19.90 Unspecified osteoarthritis, unspecified site; Z79.899 Other long term (current) drug therapy; Z88.5 Allergy status to narcotic agent; Z98.52 Vasectomy status; Z90.2 Acquired absence of lung [part of]; Z83.2 Family history of diseases of the blood and blood-forming organs and certain disorders involving the immune mechanism; Z80.0 Family history of malignant neoplasm of digestive organs
CPT/HCPCS: 36410; 36415; 74176; 74177; 76937; 80053; 81003; 82150; 83605; 83690; 85025; 87040; 96361; 96374; 96375; 96376; 99285

== ENCOUNTER 2018-09-01 09:46 | Day surgery (SDC) | payer MEDICARE ==
[2018-08-27 08:41] VITALS: BMI 29.0
[~2018-09-01 09:46] MED LIST: LACTATED RINGERS 1,000 ML IV SCH; LIDOCAINE 1% 20 ML VIAL (10MG/ML) FOR IV START INTRADERMA PRN
[2018-09-01] MEDS ORDERED: LACTATED RINGERS 1,000 ML IV ONE (09:57)
[2018-09-01] MEDS ORDERED: LIDOCAINE 1% 20 ML VIAL (10MG/ML) FOR IV START INTRADERMA ONE (09:57)
[2018-09-01 09:58] VITALS: TEMP 98.3
[2018-09-01] MEDS ORDERED: PROPOFOL 10 MG/ML 20 ML VIAL IV ONE (10:39)
--- NOTE | 2018-09-01 10:48 | P.GSHP ---
History of Present Illness H&P Date: 09/01/18 Chief Complaint: Chronic appendicitis, possible cecal mass This a 50-year-old male who was diagnosed with chronic appendicitis. Patient's been scheduled for interval appendectomy. Patient undergoing workup of his cecum for possible mass. He presents today for colonoscopy. 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, HYDROCELE, VASECTOMY Past Anesthesia/Blood Transfusion Reactions: No Reported Reaction Smoking Status: Never smoker - Past Family History Mother Family Medical History: Deep Vein Thrombosis (DVT) Father Family Medical History: Cancer Additional Family Medical History / Comment(s): colon Medications and Allergies Home Medications Medication Instructions Recorded Confirmed Type ALPRAZolam [Xanax] 0.5 mg PO BID PRN 08/11/18 08/27/18 History Cyclobenzaprine [Flexeril] 5 - 10 mg PO TID PRN 08/11/18 08/27/18 History Lisinopril [Zestril] 10 mg PO DAILY 08/11/18 08/27/18 History amLODIPine [Norvasc] 5 mg PO DAILY 08/11/18 08/27/18 History metroNIDAZOLE [Flagyl] 500 mg PO Q8HR #30 tab 08/14/18 08/27/18 Rx Cefuroxime Axetil [Ceftin] 500 mg PO DAILY 08/27/18 08/27/18 History Dicyclomine [Bentyl] 20 mg PO QID #15 tablet 08/27/18 08/27/18 Rx Allergies Allergy/AdvReac Type Severity Reaction Status Date / Time hydrocodone bitartrate Allergy Itching Verified 08/27/18 08:36 [From Vicodin] Surgical - Exam Vital Signs Temp Pulse Resp BP Pulse Ox 98.3 F 67 18 154/95 95 09/01/18 09:56 09/01/18 09:56 09/01/18 09:56 09/01/18 09:56 09/01/18 09:56 - General well developed, well nourished, no distress - Eyes PERRL - ENT normal pinna - Neck no masses - Respiratory normal expansion - Cardiovascular Rhythm: regular - Abdomen Abdomen: soft, non tender Assessment and Plan Assessment: Chronic appendicitis Possible cecal mass We'll perform colonoscopy.
--- NOTE | 2018-09-01 11:04 | P.OP ---
Date of Procedure: 09/01/18 Preoperative Diagnosis: Chronic appendicitis Postoperative Diagnosis: Right colon mass Procedure(s) Performed: Colonoscopy Anesthesia: MAC Surgeon: Manuelito Wyatt Pathology: other (Right colon mass) Condition: stable Disposition: PACU Description of Procedure: The patient's placed on the endoscopy table in the lateral position. He received IV sedation. Digital rectal exam was performed which revealed a few external hemorrhoids. The flexible colonoscope was then placed patient anus and passed throughout the entire colon. There is some mild diverticulosis seen throughout the entire colon. At the ileocecal valve there appeared to be a colonic mass. This was biopsied. It was unsure if this was due to inflammatory changes or aplastic changes. There were several diverticula noted in the right colon. At this point scope was withdrawn. And there a few scattered diverticula right colon, transverse colon descending colon and sigmoid colon there were no polyps or tumors seen the scope was then brought back into the rectum this appeared normal. Scope was withdrawn for patient.
[2018-09-01 11:07] VITALS: PULSE 80; RESP 20
[2018-09-01 11:27] VITALS: BP 146/100
[2018-09-01 12:33] LABS: Basophils # (A) 0.1 k/uL (0-0.2); Basophils % (A) 1 %; Eosinophils # (A) 0.3 k/uL (0-0.7); Eosinophils % (A) 5 %; HCT 48.1 % (39.0-53.0); HGB 15.7 gm/dL (13.0-17.5); Lymphocytes # (A) 2.2 k/uL (1.0-4.8); Lymphocytes % (A) 38 %; MCH 28.4 pg (25.0-35.0); MCHC 32.5 g/dL (31.0-37.0); MCV 87.2 fL (80.0-100.0); Mean Platelet Volume 9.1; Monocytes # (A) 0.3 k/uL (0-1.0); Monocytes % (A) 6 %; Neutrophils # (A) 2.8 k/uL (1.3-7.7); Neutrophils % (A) 49 %; Platelet Count 190 k/uL (150-450); RBC 5.52 m/uL (4.30-5.90); RDW 13.9 % (11.5-15.5); WBC 5.7 k/uL (3.8-10.6)
[2018-09-01 12:42] LABS: Potassium 4.3 mmol/L (3.5-5.1)
== END 2018-09-01 12:24 | disposition home or self-care (01) ==
LOC: ORWHC2ENDO 09:46
PROVIDERS: ATTEND Surgery
DX: C18.2 Malignant neoplasm of ascending colon (principal); E78.5 Hyperlipidemia, unspecified; I10 Essential (primary) hypertension; J45.909 Unspecified asthma, uncomplicated; K36 Other appendicitis; Z88.5 Allergy status to narcotic agent; Z79.899 Other long term (current) drug therapy; K64.4 Residual hemorrhoidal skin tags; K57.30 Diverticulosis of large intestine without perforation or abscess without bleeding
CPT/HCPCS: 88305; 80051; 85025; 45380; 44404; J2704; 86850; 86900; 86901

== ENCOUNTER 2018-09-02 08:09 | Inpatient (IN) | payer MEDICARE ==
[~2018-09-02 08:09] MED LIST changes: +HEPARIN SODIUM,PORCINE 5,000 UNIT/ML 1 ML VIAL SQ ONE; -LACTATED RINGERS 1,000 ML IV SCH; -LIDOCAINE 1% 20 ML VIAL (10MG/ML) FOR IV START INTRADERMA PRN; +ceFAZolin IN SWFI 2 GM/20 ML SYRINGE IVP ONE; +metroNIDAZOLE-NS PMX 500 MG in SALINE 1 100ML.BAG IVPB ONE
[2018-09-02] MEDS ORDERED: LACTATED RINGERS 1,000 ML IV SCH (08:50)
[2018-09-02] MEDS ORDERED: DEXAMETHASONE SOD PHOSPHATE 10 MG/ML 1 ML VIAL IV ONE (08:50)
[2018-09-02] MEDS ORDERED: MIDAZOLAM 2 MG/2 ML VIAL IV PRN (08:50)
[2018-09-02] MEDS ORDERED: fentaNYL (PF) 50 MCG/ML 2 ML AMP IV PRN (08:50)
[2018-09-02] MEDS ORDERED: ONDANSETRON 4 MG/2 ML VIAL IVP ONE (08:50)
[2018-09-02] MEDS ORDERED: SCOPOLAMINE 1.5MG/72HR PATCH TRANSDERM ONE (08:50)
[2018-09-02] MEDS ORDERED: LIDOCAINE 1% 20 ML VIAL (10MG/ML) FOR IV START INTRADERMA ONE (09:06)
[2018-09-02] MEDS ORDERED: MIDAZOLAM (PF) 2 MG/2 ML VIAL IVP ONE (09:19)
[2018-09-02] MEDS ORDERED: fentaNYL (PF) 50 MCG/ML 2 ML AMP IVP ONE (09:20)
--- NOTE | 2018-09-02 09:25 | P.GSHP ---
History of Present Illness H&P Date: 09/02/18 Chief Complaint: Cecal mass This a 52-year-old male who presents today for right colectomy. Patient was previously diagnosis cecal mass and possible chronic appendicitis. Past Medical History Past Medical History: Asthma, Hyperlipidemia, Hypertension, Osteoarthritis (OA) Additional Past Medical History / Comment(s): Diverticulosis, appendicitis History of Any Multi-Drug Resistant Organisms: None Reported Past Surgical History: Heart Catheterization, Orthopedic Surgery Additional Past Surgical History / Comment(s): rotator cuff surg., had part of right lung removed as an , HYDROCELE, VASECTOMY Past Anesthesia/Blood Transfusion Reactions: No Reported Reaction Smoking Status: Never smoker - Past Family History Mother Family Medical History: Deep Vein Thrombosis (DVT) Father Family Medical History: Cancer Additional Family Medical History / Comment(s): colon Medications and Allergies Home Medications Medication Instructions Recorded Confirmed Type ALPRAZolam [Xanax] 0.5 mg PO BID PRN 08/11/18 09/02/18 History Cyclobenzaprine [Flexeril] 5 - 10 mg PO TID PRN 08/11/18 09/02/18 History Lisinopril [Zestril] 10 mg PO DAILY 08/11/18 09/02/18 History amLODIPine [Norvasc] 5 mg PO DAILY 08/11/18 09/02/18 History metroNIDAZOLE [Flagyl] 500 mg PO Q8HR #30 tab 08/14/18 09/02/18 Rx Cefuroxime Axetil [Ceftin] 500 mg PO DAILY 08/27/18 09/02/18 History Dicyclomine [Bentyl] 20 mg PO QID #15 tablet 08/27/18 09/02/18 Rx Allergies Allergy/AdvReac Type Severity Reaction Status Date / Time hydrocodone bitartrate Allergy Itching Verified 09/02/18 09:02 [From Vicodin] Surgical - Exam Vital Signs Temp Pulse Resp BP Pulse Ox 98.7 F 63 18 119/73 95 09/02/18 08:49 09/02/18 08:49 09/02/18 08:49 09/02/18 08:49 09/02/18 08:49 - General well developed, well nourished, no distress - Eyes PERRL - ENT normal pinna - Neck no masses - Respiratory normal expansion - Cardiovascular Rhythm: regular - Abdomen Abdomen: soft, non tender Assessment and Plan Assessment: Cecal Mass. Chronic appendicitis Perform right colectomy
[2018-09-02] MEDS ORDERED: PROPOFOL 10 MG/ML 20 ML VIAL IV ONE (09:36)
[2018-09-02] MEDS ORDERED: ePHEDrine SULFATE/0.9% NACL/PF 50 MG/5 ML SYRINGE IV ONE (09:36)
[2018-09-02] MEDS ORDERED: ONDANSETRON 4 MG/2 ML VIAL ONE (09:36)
[2018-09-02] MEDS ORDERED: PHENYLEPHRINE-0.9% NACL SYG 1 MG/10 ML SYRINGE ONE (09:36)
[2018-09-02] MEDS ORDERED: LIDOCAINE 1% INJ 10MG/ML (20 ML MDV) ONE (09:36)
[2018-09-02] MEDS ORDERED: SUCCINYLCHOLINE CHLORIDE 100 MG/5 ML SYR IV ONE (09:36)
[2018-09-02] MEDS ORDERED: GLYCOPYRROLATE 0.2 MG/ML 2 ML VIAL ONE (09:36)
[2018-09-02] MEDS ORDERED: ROCURONIUM BROMIDE 10 MG/ML 10 ML VIAL IV ONE (09:36)
[2018-09-02] MEDS ORDERED: fentaNYL (PF) 50 MCG/ML 2 ML AMP ONE (09:36)
[2018-09-02] MEDS ORDERED: MIDAZOLAM 2 MG/2 ML VIAL ONE (09:36)
[2018-09-02] MEDS ORDERED: NEOSTIGMINE 1 MG/ML 10 ML VIAL ONE (09:36)
[2018-09-02] MEDS ORDERED: LACTATED RINGERS 1,000 ML IV ONE (10:18)
[2018-09-02] MEDS ORDERED: NALOXONE 0.4 MG/ML 1 ML VIAL IV PRN (10:20)
[2018-09-02] MEDS ORDERED: METOCLOPRAMIDE 5 MG/ML 2 ML VIAL IVP PRN (11:11)
[2018-09-02] MEDS ORDERED: BENZOCAINE/MENTHOL LOZENG 1 EACH LOZENGE MUCOUS MEM PRN (11:11)
--- NOTE | 2018-09-02 11:11 | P.OP ---
Date of Procedure: 09/02/18 Preoperative Diagnosis: Cecal mass Postoperative Diagnosis: Cecal mass Procedure(s) Performed: Right colectomy Anesthesia: DONALD Surgeon: Manuelito Wyatt Estimated Blood Loss (ml): 40 Pathology: other (Ileocolectomy) Condition: stable Disposition: PACU Description of Procedure: The patient's placed the operative table in the supine position. He received general anesthesia. His abdomen was prepped and draped usual sterile fashion. The abdomen was entered through midline incision. The abdomen was explored. The Bookwalter retractor had been placed a wound. The liver appeared normal. The stomach appeared normal. The small bowel appeared normal. At the level cecum there was a mass palpated. The appendix was very distended. The remainder of the ascending colon transverse colon and descending colon appeared normal. At this point decided to perform ileocolectomy. The terminal ileum was transected with the BALDEMAR stapler and then the proximal transverse colon was transected with a GI stapler. The colon was mobilized by dividing the white line of Toldt's. And then using the Enseal device the mesentery of the colon and terminal ileum was divided. The specimen sent to pathology. A standard [id number] functional end-to-end staple anastomosis was created using the BALDEMAR and TA staplers. A 3-0 GI silk suture was used across stitch. The abdomen was irrigated there is no bleeding seen. The fascia was closed with looped #1 PDS suture. The skin was closed glenroy. The prevena wound system was placed on top of the stapled skin.
[2018-09-02] MEDS ORDERED: HYDROmorphone 1 MG/ML 1 ML SYRINGE IVP ONE ×3 (11:14→12:07)
[2018-09-02] MEDS: ROPIVACAINE 250 MG, HYDROMORPHONE (PF) 5 MG in SODIUM CHLORIDE 0.9% 200 ML EPIDURAL PRN (11:35)
[2018-09-02 13:02] VITALS: BMI 28.8
[2018-09-02] MEDS: LACTATED RINGERS 1,000 ML IV SCH (13:13)
[2018-09-02] MEDS: D5-0.45% NACL WITH KCL 20MEQ/L 1,000 ML IV SCH ×2 (13:13→19:33)
[2018-09-02] MEDS: HEPARIN SODIUM,PORCINE 5,000 UNIT/ML 1 ML VIAL SQ SCH ×2 (15:50→22:58)
[2018-09-02 16:21] LABS: Basophils % (A) 0 %; Eosinophils # (A) 0.1 k/uL (0-0.7); Eosinophils % (A) 1 %; HCT 44.7 % (39.0-53.0); HGB 14.3 gm/dL (13.0-17.5); Lymphocytes # (A) 0.7 k/uL (1.0-4.8); Lymphocytes % (A) 7 %; MCH 28.5 pg (25.0-35.0); MCV 89.2 fL (80.0-100.0); Mean Platelet Volume 9.3; Monocytes # (A) 0.2 k/uL (0-1.0); Monocytes % (A) 2 %; Neutrophils % (A) 90 %; Platelet Count 188 k/uL (150-450); RBC 5.01 m/uL (4.30-5.90); RDW 13.4 % (11.5-15.5)
[2018-09-02 16:35] LABS: African American GFR (CKD) >90 (>60 ml/min/1.73 sqM); Anion Gap 11 mmol/L; Blood Urea Nitrogen 9 mg/dL (9-20); Calcium 8.5 mg/dL (8.4-10.2); Carbon Dioxide 20 mmol/L (22-30); Chloride 106 mmol/L (98-107); Glucose 129 mg/dL (74-99); Sodium 137 mmol/L (137-145)
--- NOTE | 2018-09-02 17:11 | P.CONS ---
History of Present Illness - Reason for Consult Consult date: 09/02/18 Hypertension Requesting physician: Manuelito Wyatt - Chief Complaint colonic mass - History of Present Illness Patient is a 52-year-old male with a past medical history of hypertension, dyslipidemia, asthma, and diverticulosis who is admitted for right colon resection secondary to mass. Patient had initially been here from [facility] secondary to acute appendicitis with a cecal mass. At that point in time he was discharged home on outpatient IV antibiotics. He was then transitioned to oral antibiotics. He has been following up with Dr. Wyatt and Dr. Guerra. She underwent colonoscopy on 09/01 was found have a right colonic mass and therefore underwent surgery 09/02. Patient seen and examined at bedside. He denies any shortness of breath, lightheadedness, dizziness, or nausea. He is having some abdominal pain. He is not feeling hungry. He has not Passed any flatus. Patient states that his first day home after discharge he did have one episode of fevers but none since then. He has not had any recent cough, cold, fever, flu, nausea, or vomiting. He is not having any abdominal pain prior to surgery. He was having frequent loose stools secondary to his antibiotic use. He denies any changes in his medical history since leaving the hospital other than the discovery of the colonic mass on colonoscopy. Review of Systems Pertinent positives and negatives as discussed in HPI, a complete review of systems was performed and all other systems are negative. Past Medical History Past Medical History: Asthma, Hyperlipidemia, Hypertension, Osteoarthritis (OA) Additional Past Medical History / Comment(s): Diverticulosis, appendicitis History of Any Multi-Drug Resistant Organisms: None Reported Past Surgical History: Heart Catheterization, Orthopedic Surgery Additional Past Surgical History / Comment(s): rotator cuff surg., Partial pneumonectomy right as an , HYDROCELE, VASECTOMY, right sided partial colectomy Past Anesthesia/Blood Transfusion Reactions: No Reported Reaction Past Psychological History: No Psychological Hx Reported Smoking Status: Never smoker Past Alcohol Use History: Occasional Past Drug Use History: None Reported - Past Family History Mother Family Medical History: Deep Vein Thrombosis (DVT) Father Family Medical History: Cancer Additional Family Medical History / Comment(s): colon Medications and Allergies Home Medications Medication Instructions Recorded Confirmed Type ALPRAZolam [Xanax] 0.5 mg PO BID PRN 08/11/18 09/02/18 History Cyclobenzaprine [Flexeril] 5 - 10 mg PO TID PRN 08/11/18 09/02/18 History Lisinopril [Zestril] 10 mg PO DAILY 08/11/18 09/02/18 History amLODIPine [Norvasc] 5 mg PO DAILY 08/11/18 09/02/18 History metroNIDAZOLE [Flagyl] 500 mg PO Q8HR #30 tab 08/14/18 09/02/18 Rx Cefuroxime Axetil [Ceftin] 500 mg PO DAILY 08/27/18 09/02/18 History Dicyclomine [Bentyl] 20 mg PO QID #15 tablet 08/27/18 09/02/18 Rx Allergies Allergy/AdvReac Type Severity Reaction Status Date / Time hydrocodone bitartrate Allergy Itching Verified 09/02/18 09:02 [From Vicodin] Physical Exam Osteopathic Statement: *. No significant issues noted on an osteopathic structural exam other than those noted in the History and Physical/Consult. Vitals: Vital Signs Temp Pulse Pulse Pulse Resp BP BP 09/02/18 15:15 60 117/73 09/02/18 15:00 98 126/85 09/02/18 14:45 94 136/85 09/02/18 14:30 101 H 104/67 09/02/18 14:15 58 L 99/53 09/02/18 14:00 72 99/65 09/02/18 13:45 67 95/55 09/02/18 13:30 59 L 106/64 09/02/18 13:15 89 89 123/70 123/70 09/02/18 13:00 98.4 F 100 100 12 115/86 115/68 09/02/18 12:00 58 L 14 116/65 09/02/18 11:35 51 L 16 124/65 09/02/18 11:20 50 L 16 127/60 09/02/18 11:05 97.2 F L 52 L 16 130/60 09/02/18 08:49 98.7 F 63 18 119/73 Pulse Ox 09/02/18 15:15 09/02/18 15:00 09/02/18 14:45 09/02/18 14:30 09/02/18 14:15 09/02/18 14:00 09/02/18 13:45 09/02/18 13:30 09/02/18 13:15 09/02/18 13:00 95 09/02/18 12:00 95 09/02/18 11:35 95 09/02/18 11:20 95 09/02/18 11:05 95 09/02/18 08:49 95 Intake and Output 09/02/18 09/02/18 09/02/18 06:59 14:59 22:59 Intake Total 1800 Output Total 140 Balance 1660 Intake: IV 1800 Output: Urine 100 Estimated Blood Loss 40 Other: Voiding Method Indwelling Catheter # Voids 3 Weight 85.8 kg General: ill appearing, no distress, appears at stated age, normal weight Derm: Wound vac inplace midline abdomen, no unusual rashes/lesions no unusual e cchymoses, warm, dry Head: atraumatic, normocephalic, symmetric Eyes: EOMI, no lid lag, anicteric sclera, pupils equal round reactive to light ENT: Nose and ears atraumatic, no thrush, no pharyngeal erythema Neck: No thyromegaly, no cervical lymphadenopathy, trachea midline, supple Mouth: no lip lesion, mucus membranes dry Cardiovascular: S1S2 reg, no murmur, positive posterior tibial pulse bilateral, no edema, capillary refill less than 2 seconds Lungs: CTA bilateral, no rhonchi, no rales , no accessory muscle use Abdominal: soft, + tender to palpation diffuselt , no guarding, no appreciable organomegaly, hypoactive bowel sounds Ext: no gross muscle atrophy, muscle strength 5 out of 5 in all 4 extremities grossly, no contractures, Neuro: CN II-XI grossly intact, light touch intact all 4 extremities, finger to nose within normal limits, Psych: Alert, oriented, appropriate affect Results CBC & Chem 7: 09/02/18 15:38 09/02/18 15:38 Labs: Abnormal Lab Results - Last 24 Hours (Table) 09/02/18 09/02/18 Range/Units 15:38 15:38 Neutrophils # 9.0 H (1.3-7.7) k/uL Lymphocytes # 0.7 L (1.0-4.8) k/uL Carbon Dioxide 20 L (22-30) mmol/L Glucose 129 H (74-99) mg/dL Assessment and Plan Assessment: Hypertension, controlled -Hold lisinopril and Norvasc with recent surgery -Follow blood pressures -If blood pressure greater than 180 will consider initiation of medications Cecal status post right sided hemicolectomy -Epidural in place -As an outpatient was still on Ceftin and Flagyl. Currently receiving perioperative Kefzol. - on entereg HLD - not chronically on medications Asthma, without exacerbation - prn albuterol Thank you for allowing us to participate in the care of this patient. Do not hesitate to contact us with questions. Someone can be reached from the [facility] hospitalist group at all hours of the day at [phone].
[2018-09-02] MEDS: ONDANSETRON 4 MG/2 ML VIAL IVP PRN (17:55)
[2018-09-02] MEDS: diphenhydrAMINE 50 MG/ML 1 ML VIAL IVP PRN (19:31)
[2018-09-02] MEDS: ALVIMOPAN 12 MG CAPSULE PO SCH (21:00)
[2018-09-02] MEDS: FAMOTIDINE 20 MG/2 ML VIAL IV SCH (21:37)
[2018-09-03] MEDS: D5-0.45% NACL WITH KCL 20MEQ/L 1,000 ML IV SCH ×3 (04:16→19:40)
[2018-09-03] MEDS: FAMOTIDINE 20 MG/2 ML VIAL IV SCH ×2 (07:17→21:15)
[2018-09-03] MEDS: HEPARIN SODIUM,PORCINE 5,000 UNIT/ML 1 ML VIAL SQ SCH ×3 (07:17→23:29)
[2018-09-03] MEDS: ALVIMOPAN 12 MG CAPSULE PO SCH ×2 (07:17→20:41)
[2018-09-03] MEDS: ONDANSETRON 4 MG/2 ML VIAL IVP PRN ×2 (07:28→19:29)
[2018-09-03] MEDS: LACTATED RINGERS 1,000 ML IV SCH (08:18)
[2018-09-03 09:01] LABS: HCT 41.4 % (39.0-53.0); HGB 13.9 gm/dL (13.0-17.5); MCH 29.6 pg (25.0-35.0); MCHC 33.6 g/dL (31.0-37.0); MCV 88.2 fL (80.0-100.0); Mean Platelet Volume 8.7; Platelet Count 193 k/uL (150-450); RDW 12.7 % (11.5-15.5); WBC 12.5 k/uL (3.8-10.6)
[2018-09-03 09:18] LABS: African American GFR (CKD) >90 (>60 ml/min/1.73 sqM); Anion Gap 8 mmol/L; Blood Urea Nitrogen 7 mg/dL (9-20); Calcium 8.8 mg/dL (8.4-10.2); Carbon Dioxide 28 mmol/L (22-30); Chloride 102 mmol/L (98-107); Glucose 91 mg/dL (74-99); Phosphorus 2.7 mg/dL (2.5-4.5); Potassium 3.9 mmol/L (3.5-5.1); Sodium 138 mmol/L (137-145)
--- NOTE | 2018-09-03 11:48 | P.PN ---
Subjective Progress Note Date: 09/03/18 CHIEF COMPLAINT: Cecal mass HISTORY OF PRESENT ILLNESS: 52-year-old male who is status post right colectomy. POD #1. Patient seen and examined at the bedside. He reports his pain is tolerable this morning. Complains of mild abdominal bloating. Tolerating clear liquid diet. Denies nausea or vomiting. Passing small amounts of flatus. Denies BM. Vital signs stable. Afebrile. WBC 12.5. Hemoglobin 13.9 PHYSICAL EXAM: VITAL SIGNS: Reviewed. GENERAL: Well-developed in no acute distress. HEENT: No sclera icterus. Extraocular movements grossly intact. Moist buccal mucosa. Head is atraumatic, normocephalic. ABDOMEN: Soft. Minimal distention. Appropriate surgical tenderness. PREVENA intact. Hypoactive bowel sounds. NEUROLOGIC: Alert and oriented. Cranial nerves II through XII grossly intact. ASSESSMENT: 1. Cecal mass, s/p right colectomy PLAN: 1. Continue clear liquid diet today. Continue Entereg 2. Incentive spirometry 3. Continue epidural and law catheter. Remove POD #3 4. Activity as tolerated 5. Monitor labs 6. Await pathology Nurse practitioner note has been reviewed by physician. Signing provider agrees with the documented findings, assessment, and plan of care. Objective - Vital Signs Vital signs: Vital Signs Temp 98.9 F 09/03/18 07:00 Pulse 74 09/03/18 07:00 Resp 14 09/03/18 07:00 BP 135/82 09/03/18 07:00 Pulse Ox 94 L 09/03/18 07:00 Intake & Output 09/02/18 09/03/18 09/03/18 18:59 06:59 18:59 Intake Total 1800 0 700 Output Total 365 1700 Balance 1435 -1700 700 Weight 85.8 kg Intake: IV 1800 Oral 0 700 Output: Urine 325 1700 Estimated Blood Loss 40 Other: Voiding Method Indwelling Catheter Indwelling Catheter Indwelling Catheter # Voids 3 - Labs CBC & Chem 7: 09/03/18 08:38 09/03/18 08:38 Labs: Abnormal Lab Results - Last 24 Hours (Table) 09/02/18 09/02/18 09/03/18 Range/Units 15:38 15:38 08:38 WBC 12.5 H (3.8-10.6) k/uL Neutrophils # 9.0 H (1.3-7.7) k/uL Lymphocytes # 0.7 L (1.0-4.8) k/uL Carbon Dioxide 20 L (22-30) mmol/L BUN (9-20) mg/dL Glucose 129 H (74-99) mg/dL 09/03/18 Range/Units 08:38 WBC (3.8-10.6) k/uL Neutrophils # (1.3-7.7) k/uL Lymphocytes # (1.0-4.8) k/uL Carbon Dioxide (22-30) mmol/L BUN 7 L (9-20) mg/dL Glucose (74-99) mg/dL
--- NOTE | 2018-09-03 13:15 | P.PN ---
Progress Note - Text Progress Note Date: 09/03/18 Postoperative day # status post ileocolectomy/epidural catheter placed for postoperative analgesia, patient doing well epidural site okay, patient currently on combination of epidural infusion solution of Ropivacaine 0.0625% and Dilaudid 20 g per mL the infusion rate at 7 ml per hour , patient had no motor deficit epidural site okay , vital signs stable ,VAS 4/10 , Assessment and plan= post operative day # 1 patient doing well ,pain well controlled , there is no anesthesia related complications
--- NOTE | 2018-09-03 16:35 | P.PN ---
Subjective Progress Note Date: 09/03/18 (delayed charting seen at 1145) Principal diagnosis: colon mass Patient is a 52-year-old male with a past medical history of hypertension, dyslipidemia, asthma, and diverticulosis who is admitted for right colon resection secondary to mass. Patient had initially been here from [id number] secondary to acute appendicitis with a cecal mass. At that point in time he was discharged home on outpatient IV antibiotics. He was then transitioned to oral antibiotics. He has been following up with Dr. Wyatt and Dr. Guerra. He underwent colonoscopy on 09/01 was found have a right colonic mass and therefore underwent surgery 09/02. He tolerated the procedure well. Currently using epidural for pain control. Patient seen and examined at bedside. He reports some abdominal pain which is being controlled with his epidural, no nausea, no vomiting, hasn't burping but not passing flatus, Objective - Vital Signs Vital signs: Vital Signs Temp 98.4 F 09/03/18 15:30 Pulse 76 09/03/18 15:30 Resp 16 09/03/18 15:15 BP 155/90 09/03/18 15:30 Pulse Ox 94 L 09/03/18 07:00 Intake & Output 09/02/18 09/03/18 09/03/18 18:59 06:59 18:59 Intake Total 1800 0 1200 Output Total 365 1700 1400 Balance 1435 -1700 -200 Weight 85.8 kg Intake: IV 1800 Oral 0 1200 Output: Urine 325 1700 1400 Estimated Blood Loss 40 Other: Voiding Method Indwelling Catheter Indwelling Catheter Indwelling Catheter # Voids 3 - Exam General: non toxic, no distress, appears at stated age Derm: warm, dry Head: atraumatic, normocephalic, symmetric Eyes: EOMI, no lid lag, anicteric sclera Mouth: no lip lesion, mucus membranes moist Cardiovascular: S1S2 reg, no murmur, positive posterior tibial pulse bilateral, Lungs: Decreased breath sounds bilateral, no rhonchi, no rales , no accessory muscle use Abdominal: soft, tender to palpation diffusely, no guarding, no appreciable organomegaly, wound VAC in place of her midline incision Ext: no gross muscle atrophy, no edema, no contractures Neuro: CN II-XI grossly intact, no focal neuro deficits Psych: Alert, oriented, appropriate affect - Labs CBC & Chem 7: 09/03/18 08:38 09/03/18 08:38 Labs: Abnormal Lab Results - Last 24 Hours (Table) 09/02/18 09/03/18 09/03/18 Range/Units 15:38 08:38 08:38 WBC 12.5 H (3.8-10.6) k/uL Carbon Dioxide 20 L (22-30) mmol/L BUN 7 L (9-20) mg/dL Glucose 129 H (74-99) mg/dL Assessment and Plan Assessment: Hypertension, controlled -resume norvasc today and lisinopril in AM -Follow blood pressures Cecal mass status post right sided hemicolectomy -Epidural in place -As an outpatient was still on Ceftin and Flagyl. Likely related to malignancy. No need for additional antibiotics at this time - on entereg - awaiting Bx results HLD - not chronically on medications Asthma, without exacerbation - prn albuterol Thank you for allowing us to participate in the care of this patient. Do not hesitate to contact us with questions. Someone can be reached from the [facility] hospitalist group at all hours of the day at [phone].
[2018-09-03] MEDS: amLODIPine 5 MG TAB PO SCH (16:46)
[2018-09-03] MEDS: ALPRAZolam 0.5 MG TAB PO PRN (21:15)
[2018-09-03] MEDS: ROPIVACAINE 250 MG, HYDROMORPHONE (PF) 5 MG in SODIUM CHLORIDE 0.9% 200 ML EPIDURAL PRN (21:44)
[2018-09-04] MEDS: D5-0.45% NACL WITH KCL 20MEQ/L 1,000 ML IV SCH ×3 (03:37→20:37)
[2018-09-04] MEDS: amLODIPine 5 MG TAB PO SCH (08:57)
[2018-09-04] MEDS: diphenhydrAMINE 50 MG/ML 1 ML VIAL IVP PRN (08:57)
[2018-09-04] MEDS: LISINOPRIL 10 MG TAB PO SCH (08:57)
[2018-09-04] MEDS: ALVIMOPAN 12 MG CAPSULE PO SCH ×2 (08:57→20:29)
[2018-09-04] MEDS: HEPARIN SODIUM,PORCINE 5,000 UNIT/ML 1 ML VIAL SQ SCH ×2 (08:58→16:18)
[2018-09-04] MEDS: FAMOTIDINE 20 MG/2 ML VIAL IV SCH (08:58)
[2018-09-04] MEDS: LACTATED RINGERS 1,000 ML IV SCH (08:59)
--- NOTE | 2018-09-04 09:39 | P.PN ---
Progress Note - Text Progress Note Date: 09/04/18 Pt w/o complaints. Pain controlled. Denies headache or weakness. Epidural site clean and dry. A/P POD#2 s/p R colectomy - continue epidural @ 8 ml/hr
--- NOTE | 2018-09-04 11:35 | P.PN ---
Subjective Progress Note Date: 09/04/18 Principal diagnosis: colon mass Patient feels okay, no chest pain no abdominal pain, no n/v . No flatus yet .Family at bedside Objective - Vital Signs Vital signs: Vital Signs Temp 98.4 F 09/04/18 07:45 Pulse 66 09/04/18 07:45 Resp 17 09/04/18 07:45 BP 161/91 09/04/18 07:45 Pulse Ox 94 L 09/04/18 07:45 Intake & Output 09/03/18 09/04/18 09/04/18 18:59 06:59 18:59 Intake Total 1600 100 Output Total 1400 3350 2200 Balance 200 -3350 -2100 Intake: Oral 1600 100 Output: Urine 1400 3350 2200 Other: Voiding Method Indwelling Catheter Indwelling Catheter Indwelling Catheter - Exam General: non toxic, no distress, appears at stated age Derm: warm, dry Head: atraumatic, normocephalic, symmetric Eyes: EOMI, no lid lag, anicteric sclera Mouth: no lip lesion Cardiovascular: S1S2 reg, no murmur, Lungs: Decreased breath sounds bilateral, no rhonchi, no rales , Abdominal: soft, tender to palpation no guarding, wound VAC in place Ext: no gross muscle atrophy, no edema, no contractures Neuro: CN II-XI grossly intact, no focal neuro deficits Psych: Alert, oriented, appropriate affect - Labs CBC & Chem 7: 09/03/18 08:38 09/03/18 08:38 Assessment and Plan Plan: Hypertension, controlled - norvasc and lisinopril Cecal mass status post right sided hemicolectomy -As an outpatient was still on Ceftin and Flagyl. Likely related to malignancy. No need for additional antibiotics at this time - on entereg - Bx results + malignancy , will follow HLD - not chronically on medications Asthma, without exacerbation - prn albuterol
[2018-09-04] MEDS: ONDANSETRON 4 MG/2 ML VIAL IVP PRN (11:53)
[2018-09-04] MEDS: ALPRAZolam 0.5 MG TAB PO PRN (13:23)
--- NOTE | 2018-09-04 13:43 | P.PN ---
Subjective Progress Note Date: 09/04/18 CHIEF COMPLAINT: Cecal mass HISTORY OF PRESENT ILLNESS: 52-year-old male who is status post right colectomy. POD #2. Patient seen and examined at the bedside. He reports his pain is tolerable this morning. Tolerating clear liquid diet. Denies passing flatus this morning. Denies BM. Reports some nausea with exertion. Pathology from colonoscopy positive for adenocarcinoma. Surgical pathology pending. PHYSICAL EXAM: VITAL SIGNS: Reviewed. GENERAL: Well-developed in no acute distress. HEENT: No sclera icterus. Extraocular movements grossly intact. Moist buccal mucosa. Head is atraumatic, normocephalic. ABDOMEN: Soft. Minimal distention. Appropriate surgical tenderness. PREVENA intact. Hypoactive bowel sounds. NEUROLOGIC: Alert and oriented. Cranial nerves II through XII grossly intact. ASSESSMENT: 1. Cecal mass, s/p right colectomy PLAN: 1. Continue clear liquid diet. Continue Entereg 2. Incentive spirometry 3. Continue epidural and law catheter. Remove POD #3 4. Activity as tolerated. Patient must be up and OOB and ambulating in the hallways 3-4 times a day. 5. Monitor labs 6. Await pathology Nurse practitioner note has been reviewed by physician. Signing provider agrees with the documented findings, assessment, and plan of care. Objective - Vital Signs Vital signs: Vital Signs Temp 98.4 F 09/04/18 07:45 Pulse 66 09/04/18 07:45 Resp 17 09/04/18 07:45 BP 161/91 09/04/18 07:45 Pulse Ox 94 L 09/04/18 07:45 Intake & Output 09/03/18 09/04/18 09/04/18 18:59 06:59 18:59 Intake Total 1600 100 Output Total 1400 3350 2200 Balance 200 -3350 -2100 Intake: Oral 1600 100 Output: Urine 1400 3350 2200 Other: Voiding Method Indwelling Catheter Indwelling Catheter Indwelling Catheter - Labs CBC & Chem 7: 09/03/18 08:38 09/03/18 08:38
[2018-09-04] MEDS ORDERED: diphenhydrAMINE 25 MG CAP PO PRN (14:51)
[2018-09-04] MEDS: FAMOTIDINE 20 MG TAB PO SCH (20:29)
[2018-09-04] MEDS: ROPIVACAINE 250 MG, HYDROMORPHONE (PF) 5 MG in SODIUM CHLORIDE 0.9% 200 ML EPIDURAL PRN (20:30)
[2018-09-05] MEDS: ALPRAZolam 0.5 MG TAB PO PRN ×2 (00:35→19:08)
[2018-09-05] MEDS: HEPARIN SODIUM,PORCINE 5,000 UNIT/ML 1 ML VIAL SQ SCH ×4 (00:35→23:21)
[2018-09-05] MEDS: D5-0.45% NACL WITH KCL 20MEQ/L 1,000 ML IV SCH ×3 (03:23→20:25)
--- NOTE | 2018-09-05 07:26 | P.PN ---
Progress Note - Text 09/05 711am 52-year-old male status post colectomy by Dr. Wyatt. Patient has an epidural catheter for postop pain control with the solution running at 6 mL an hour, patient has a VAS of 2 with no motor or sensory deficits. He has been ambulating. Epidural DC'd nurse informed
[2018-09-05] MEDS: ALVIMOPAN 12 MG CAPSULE PO SCH ×2 (09:45→20:24)
[2018-09-05] MEDS: FAMOTIDINE 20 MG TAB PO SCH ×2 (09:46→20:24)
[2018-09-05] MEDS: amLODIPine 5 MG TAB PO SCH (09:46)
[2018-09-05] MEDS: LACTATED RINGERS 1,000 ML IV SCH (09:46)
[2018-09-05] MEDS: LISINOPRIL 10 MG TAB PO SCH (09:46)
[2018-09-05 10:25] LABS: Basophils % (A) 1 %; Eosinophils # (A) 0.3 k/uL (0-0.7); Eosinophils % (A) 5 %; HCT 45.1 % (39.0-53.0); HGB 14.9 gm/dL (13.0-17.5); Lymphocytes % (A) 29 %; MCH 29.1 pg (25.0-35.0); MCV 88.2 fL (80.0-100.0); Mean Platelet Volume 8.6; Monocytes # (A) 0.5 k/uL (0-1.0); Monocytes % (A) 8 %; Neutrophils # (A) 3.9 k/uL (1.3-7.7); Neutrophils % (A) 57 %; Platelet Count 207 k/uL (150-450); RBC 5.11 m/uL (4.30-5.90); RDW 12.8 % (11.5-15.5); WBC 6.9 k/uL (3.8-10.6)
[2018-09-05 10:34] LABS: African American GFR (CKD) >90 (>60 ml/min/1.73 sqM); Anion Gap 9 mmol/L; Blood Urea Nitrogen 6 mg/dL (9-20); Calcium 9.1 mg/dL (8.4-10.2); Carbon Dioxide 29 mmol/L (22-30); Chloride 101 mmol/L (98-107); Glucose 70 mg/dL (74-99); Potassium 3.9 mmol/L (3.5-5.1); Sodium 139 mmol/L (137-145)
--- NOTE | 2018-09-05 10:54 | P.PN ---
Subjective Progress Note Date: 09/05/18 Principal diagnosis: appendix mass Feels better today, no chest pain , minimal abdominal pain, no nausea no vomiting no shortness of breath, she states that he has been passing flatus but no BM yet. Objective - Vital Signs Vital signs: Vital Signs Temp 98.1 F 09/05/18 07:00 Pulse 67 09/05/18 07:00 Resp 15 09/05/18 07:00 BP 141/89 09/05/18 07:00 Pulse Ox 95 09/05/18 07:00 Intake & Output 09/04/18 09/05/18 09/05/18 18:59 06:59 18:59 Intake Total 300 1800 Output Total 2800 1000 950 Balance -2500 800 -950 Intake: Intake, IV Titration 1800 Amount D5-0.45% NaCl with KCl 1800 20Meq/l 1,000 ml @ 125 mls/hr IV .Q8H [facility] Rx#: [id number] Oral 300 Output: Urine 2800 1000 950 Uretheral (Damian) 950 Other: Voiding Method Indwelling Catheter Indwelling Catheter Indwelling Catheter - Exam General: non toxic, no distress Derm: warm, dry Head: atraumatic, normocephalic, symmetric Eyes: EOMI Mouth: no lip lesion Cardiovascular: S1S2 reg, no murmur, Lungs: Decreased breath sounds bilateral, no rhonchi, no rales , Abdominal: soft, tender to palpation no guarding, wound VAC in place Ext: no gross muscle atrophy, no edema Neuro: CN II-XI grossly intact, no focal neuro deficits Psych: Alert, oriented, appropriate affect - Labs CBC & Chem 7: 09/05/18 09:21 09/05/18 09:21 Labs: Abnormal Lab Results - Last 24 Hours (Table) 09/05/18 Range/Units 09:21 BUN 6 L (9-20) mg/dL Glucose 70 L (74-99) mg/dL Assessment and Plan Plan: Hypertension, controlled - norvasc and lisinopril appendix mass status post right sided hemicolectomy + adenocarcinoma - on entereg - follow HLD - not chronically on medications Asthma, without exacerbation - prn albuterol Discussed with patient
[2018-09-05] MEDS: HYDROmorphone 0.5 MG/0.5 ML SYRINGE IVP PRN ×4 (12:07→23:28)
--- NOTE | 2018-09-05 14:44 | P.PN ---
Subjective Progress Note Date: 09/05/18 CHIEF COMPLAINT: Cecal mass HISTORY OF PRESENT ILLNESS: 52-year-old male who is status post right colectomy. POD #3. Patient seen and examined at the bedside. He reports his pain is tolerable this morning. Epidural infusing. Patient is tolerating clear liquid diet. He denies passing flatus but states "I think its coming. I feel it rumbling". Denies bowel movement. Patient reports he has been ambulating in the hallway. Using incentive spirometry. Vital signs have been stable. Pathology positive for primary appendiceal adenocarcinoma. 18 mesenteric lymph nodes negative for metastasis. PHYSICAL EXAM: VITAL SIGNS: Reviewed. GENERAL: Well-developed in no acute distress. HEENT: No sclera icterus. Extraocular movements grossly intact. Moist buccal mucosa. Head is atraumatic, normocephalic. ABDOMEN: Soft. Minimal distention. Appropriate surgical tenderness. PREVENA intact. Hypoactive bowel sounds. NEUROLOGIC: Alert and oriented. Cranial nerves II through XII grossly intact. ASSESSMENT: 1. s/p right colectomy for visualized mass on colonoscopy, pathology positive for primary appendiceal adenocarcinoma PLAN: 1. Continue clear liquid diet until patient begins passing flatus. Continue Entereg 2. Incentive spirometry 3. Discontinue epidural and law catheter 4. Pain control. Allergy listed to Wilson. Discussed with patient and states he had some itching in the past with Vicodin but no rash or hives and states he is able to take Wilson. 5. Activity as tolerated. Patient must be up and OOB and ambulating in the hallways 3-4 times a day. 6. Monitor labs 7. Anticipate discharge home this weekend pending bowel function 8. Prescription sent to patient's pharmacy for Wilson 9. PREVENA to be removed on 09/09/2018 Nurse practitioner note has been reviewed by physician. Signing provider agrees with the documented findings, assessment, and plan of care. Objective - Vital Signs Vital signs: Vital Signs Temp 98.1 F 09/05/18 07:00 Pulse 67 09/05/18 07:00 Resp 15 09/05/18 07:00 BP 141/89 09/05/18 07:00 Pulse Ox 95 09/05/18 07:00 Intake & Output 09/04/18 09/05/18 09/05/18 18:59 06:59 18:59 Intake Total 300 1800 600 Output Total 2800 1000 1050 Balance -2500 800 -450 Weight 85.8 kg Intake: Intake, IV Titration 1800 600 Amount D5-0.45% NaCl with KCl 1800 600 20Meq/l 1,000 ml @ 75 mls /hr IV .[id number] [facility] Rx#: [id number] Oral 300 Output: Urine 2800 1000 1050 Uretheral (Law) 950 Other: Voiding Method Indwelling Catheter Indwelling Catheter Indwelling Catheter - Labs CBC & Chem 7: 09/05/18 09:21 09/05/18 09:21 Labs: Abnormal Lab Results - Last 24 Hours (Table) 09/05/18 Range/Units 09:21 BUN 6 L (9-20) mg/dL Glucose 70 L (74-99) mg/dL
[2018-09-06] MEDS: LACTATED RINGERS 1,000 ML IV SCH (00:35)
[2018-09-06] MEDS: HYDROmorphone 0.5 MG/0.5 ML SYRINGE IVP PRN ×3 (05:36→20:29)
[2018-09-06 07:23] LABS: Basophils % (A) 1 %; Eosinophils # (A) 0.5 k/uL (0-0.7); Eosinophils % (A) 7 %; HCT 46.6 % (39.0-53.0); HGB 14.9 gm/dL (13.0-17.5); Lymphocytes # (A) 2.2 k/uL (1.0-4.8); Lymphocytes % (A) 32 %; MCH 28.3 pg (25.0-35.0); MCV 88.6 fL (80.0-100.0); Mean Platelet Volume 8.6; Monocytes # (A) 0.5 k/uL (0-1.0); Monocytes % (A) 7 %; Neutrophils # (A) 3.6 k/uL (1.3-7.7); Neutrophils % (A) 51 %; Platelet Count 226 k/uL (150-450); RBC 5.27 m/uL (4.30-5.90); RDW 12.8 % (11.5-15.5)
[2018-09-06 07:43] LABS: African American GFR (CKD) >90 (>60 ml/min/1.73 sqM); Anion Gap 11 mmol/L; Blood Urea Nitrogen 6 mg/dL (9-20); Calcium 9.3 mg/dL (8.4-10.2); Carbon Dioxide 26 mmol/L (22-30); Chloride 101 mmol/L (98-107); Glucose 96 mg/dL (74-99); Potassium 3.9 mmol/L (3.5-5.1); Sodium 138 mmol/L (137-145)
--- NOTE | 2018-09-06 10:33 | P.PN ---
Subjective Progress Note Date: 09/06/18 Principal diagnosis: Post right colectomy Patient doing fairly well today. He had 2 small bowel movements. Tolerating clears would like more to eat. Mild mid abdominal pain. Also having pain in the right great toe. No calf pain. History of previous gout. Objective - Vital Signs Vital signs: Vital Signs Temp 98.4 F 09/06/18 07:00 Pulse 75 09/06/18 07:00 Resp 12 09/06/18 07:00 BP 134/89 09/06/18 07:00 Pulse Ox 95 09/06/18 07:00 Intake & Output 09/05/18 09/06/18 09/06/18 18:59 06:59 18:59 Intake Total 600 450 400 Output Total 1550 Balance -950 450 400 Weight 85.8 kg Intake: Intake, IV Titration 600 450 Amount D5-0.45% NaCl with KCl 600 450 20Meq/l 1,000 ml @ 75 mls /hr IV .[id number] [facility] Rx#: [id number] Oral 400 Output: Urine 1550 Uretheral (Damian) 950 Other: Voiding Method Indwelling Catheter # Voids 1 # Bowel Movements 2 - Exam Abdomen: Soft, nondistended, incision clean and dry, minimal tenderness - Labs CBC & Chem 7: 09/06/18 06:36 09/06/18 06:36 Labs: Abnormal Lab Results - Last 24 Hours (Table) 09/05/18 09/06/18 Range/Units 09:21 06:36 BUN 6 L 6 L (9-20) mg/dL Glucose 70 L (74-99) mg/dL Assessment and Plan (1) Mass of cecum Narrative/Plan: Will advance diet to full liquids. Ambulate. We'll address possible gout with hospitalist service. Current Visit: No Status: Acute Code(s): K63.9 - DISEASE OF INTESTINE, UNSPECIFIED SNOMED Code(s): 470740390
[2018-09-06] MEDS: ALVIMOPAN 12 MG CAPSULE PO SCH ×2 (10:37→20:13)
[2018-09-06] MEDS: HYDROcodone/APAP 5-325MG 1 EACH TAB PO PRN ×2 (10:37→17:24)
[2018-09-06] MEDS: FAMOTIDINE 20 MG TAB PO SCH ×2 (10:41→20:13)
[2018-09-06] MEDS: amLODIPine 5 MG TAB PO SCH (10:41)
[2018-09-06] MEDS: LISINOPRIL 10 MG TAB PO SCH (10:42)
[2018-09-06] MEDS: HEPARIN SODIUM,PORCINE 5,000 UNIT/ML 1 ML VIAL SQ SCH ×2 (10:42→17:27)
[2018-09-06] MEDS: D5-0.45% NACL WITH KCL 20MEQ/L 1,000 ML IV SCH ×3 (10:44→20:29)
--- NOTE | 2018-09-06 12:28 | P.PN ---
Subjective Progress Note Date: 09/06/18 Principal diagnosis: appendix mass He feels okay, no chest pain no abdominal pain except with ambulation. He has complained of right big toe pain. No chest pain no shortness of breath Objective - Vital Signs Vital signs: Vital Signs Temp 98.4 F 09/06/18 07:00 Pulse 75 09/06/18 07:00 Resp 12 09/06/18 07:00 BP 134/89 09/06/18 07:00 Pulse Ox 95 09/06/18 07:00 Intake & Output 09/05/18 09/06/18 09/06/18 18:59 06:59 18:59 Intake Total 600 450 400 Output Total 1550 Balance -950 450 400 Weight 85.8 kg Intake: Intake, IV Titration 600 450 Amount D5-0.45% NaCl with KCl 600 450 20Meq/l 1,000 ml @ 75 mls /hr IV .[id number] [facility] Rx#: [id number] Oral 400 Output: Urine 1550 Uretheral (Damian) 950 Other: Voiding Method Indwelling Catheter # Voids 1 # Bowel Movements 2 - Exam General: non toxic, no distress Derm: warm, dry Head: atraumatic Eyes: EOMI Mouth: no lip lesion Cardiovascular: S1S2 reg, no murmur, Lungs: Decreased breath sounds bilateral, no rhonchi, no rales , no wheezing Abdominal: soft, tender to palpation no guarding, wound VAC in place Ext: no gross muscle atrophy, no edema Neuro: CN II-XI grossly intact, no focal neuro deficits Psych: Alert, oriented, appropriate affect - Labs CBC & Chem 7: 09/06/18 06:36 09/06/18 06:36 Labs: Abnormal Lab Results - Last 24 Hours (Table) 09/06/18 Range/Units 06:36 BUN 6 L (9-20) mg/dL Assessment and Plan Plan: Right big toe pain suspected gout Start prednisone 10 mg daily Hypertension, controlled - norvasc and lisinopril appendix mass status post right sided hemicolectomy + adenocarcinoma - on entereg - follow HLD - not chronically on medications Asthma, without exacerbation - prn albuterol Discussed with patient and family at bedside
[2018-09-06] MEDS: predniSONE 10 MG TAB PO SCH (13:27)
[2018-09-06] MEDS: ALPRAZolam 0.5 MG TAB PO PRN (17:24)
[2018-09-07] MEDS: HYDROcodone/APAP 5-325MG 1 EACH TAB PO PRN ×4 (00:11→18:32)
[2018-09-07] MEDS: HEPARIN SODIUM,PORCINE 5,000 UNIT/ML 1 ML VIAL SQ SCH ×4 (00:11→23:18)
[2018-09-07] MEDS: D5-0.45% NACL WITH KCL 20MEQ/L 1,000 ML IV SCH ×2 (06:08→19:06)
[2018-09-07] MEDS: FAMOTIDINE 20 MG TAB PO SCH ×2 (10:35→21:16)
[2018-09-07] MEDS: LISINOPRIL 10 MG TAB PO SCH (10:35)
[2018-09-07] MEDS: amLODIPine 5 MG TAB PO SCH (10:35)
[2018-09-07] MEDS: predniSONE 10 MG TAB PO SCH (10:35)
[2018-09-07] MEDS: ALVIMOPAN 12 MG CAPSULE PO SCH ×2 (10:35→21:16)
--- NOTE | 2018-09-07 12:47 | P.PN ---
Subjective Progress Note Date: 09/07/18 Principal diagnosis: Post right colectomy Patient doing well today. Had a large bowel movement and flatus today. No nausea or vomiting. Pain is improved. Right foot pain improved as well. Objective - Vital Signs Vital signs: Vital Signs Temp 98.1 F 09/07/18 07:00 Pulse 62 09/07/18 07:00 Resp 12 09/07/18 07:00 BP 135/96 09/07/18 07:00 Pulse Ox 99 09/07/18 07:00 Intake & Output 09/06/18 09/07/18 09/07/18 18:59 06:59 18:59 Intake Total 1000 150 Output Total 2 Balance 998 150 Intake: Intake, IV Titration 150 Amount D5-0.45% NaCl with KCl 150 20Meq/l 1,000 ml @ 75 mls /hr IV .[id number] [facility] Rx#: [id number] Oral 1000 Output: Stool 2 Other: Voiding Method Toilet # Voids 1 2 # Bowel Movements 2 - Exam Abdomen: Soft, nondistended, incision with mild tenderness, dressing clean and dry - Labs CBC & Chem 7: 09/06/18 06:36 09/06/18 06:36 Assessment and Plan (1) Mass of cecum Narrative/Plan: Increase activity. Advance diet. Anticipate discharge tomorrow. Current Visit: No Status: Acute Code(s): K63.9 - DISEASE OF INTESTINE, UNSPECIFIED SNOMED Code(s): 858090425
[2018-09-07] MEDS: HYDROmorphone 0.5 MG/0.5 ML SYRINGE IVP PRN ×2 (14:44→21:20)
[2018-09-07] MEDS: ALPRAZolam 0.5 MG TAB PO PRN (19:07)
[2018-09-08] MEDS: HYDROmorphone 0.5 MG/0.5 ML SYRINGE IVP PRN (04:15)
[2018-09-08 07:37] VITALS: BP 133/94; PULSE 63; RESP 16; TEMP 98.5
[2018-09-08] MEDS: HEPARIN SODIUM,PORCINE 5,000 UNIT/ML 1 ML VIAL SQ SCH (08:44)
[2018-09-08] MEDS: FAMOTIDINE 20 MG TAB PO SCH (08:44)
[2018-09-08] MEDS: amLODIPine 5 MG TAB PO SCH (08:44)
[2018-09-08] MEDS: predniSONE 10 MG TAB PO SCH (08:44)
[2018-09-08] MEDS: LISINOPRIL 10 MG TAB PO SCH (08:44)
[2018-09-08] MEDS: ALVIMOPAN 12 MG CAPSULE PO SCH (08:44)
[2018-09-08] MEDS: ALPRAZolam 0.5 MG TAB PO PRN (09:56)
[2018-09-08] MEDS: HYDROcodone/APAP 5-325MG 1 EACH TAB PO PRN (09:57)
--- NOTE | 2018-09-08 11:42 | P.PN ---
Subjective Progress Note Date: 09/08/18 Principal diagnosis: colon mass Patient is a 52-year-old male with a past medical history of hypertension, dyslipidemia, asthma, and diverticulosis who is admitted for right colon resection secondary to mass. Patient had initially been here from [phone] secondary to acute appendicitis with a cecal mass. At that point in time he was discharged home on outpatient IV antibiotics. He was then transitioned to oral antibiotics. He has been following up with Dr. Wyatt and Dr. Guerra. He underwent colonoscopy on 09/01 was found have a right colonic mass and therefor e underwent surgery 09/02. He tolerated the procedure well. Patient seen and examined at bedside. Having BM, no nausea, tolerating diet, right toe pain resolved. Objective - Vital Signs Vital signs: Vital Signs Temp 98.5 F 09/08/18 07:00 Pulse 63 09/08/18 07:00 Resp 16 09/08/18 07:00 BP 133/94 09/08/18 07:00 Pulse Ox 96 09/08/18 07:00 Intake & Output 09/07/18 09/08/18 09/08/18 18:59 06:59 18:59 Intake Total 600 180 Output Total 1 Balance -1 600 180 Intake: Intake, IV Titration 600 Amount D5-0.45% NaCl with KCl 600 20Meq/l 1,000 ml @ 75 mls /hr IV .[id number] [facility] Rx#: [id number] Oral 180 Output: Stool 1 Other: Voiding Method Toilet Urinal # Voids 2 2 # Bowel Movements 1 - Exam General: non toxic, no distress, appears at stated age Derm: warm, dry Head: atraumatic, normocephalic, symmetric Eyes: EOMI, no lid lag, anicteric sclera Mouth: no lip lesion, mucus membranes moist Cardiovascular: S1S2 reg, no murmur, positive posterior tibial pulse bilateral, Lungs: CTA bilateral, no rhonchi, no rales , no accessory muscle use Abdominal: soft, tender to palpation diffusely, no guarding, no appreciable organomegaly, wound VAC in place of her midline incision Ext: no gross muscle atrophy, no edema, no contractures, right great toe no edema Neuro: CN II-XI grossly intact, no focal neuro deficits Psych: Alert, oriented, appropriate affect - Labs CBC & Chem 7: 09/06/18 06:36 09/06/18 06:36 Assessment and Plan Assessment: Hypertension, controlled -Norvasc and lisinopril -Follow blood pressures Gout - resolved not need for further medications. Cecal mass status post right sided hemicolectomy Adenocarcinoma of the colon -having bowl movements - doing well - will follow with oncology as outpatient HLD - not chronically on medications Asthma, without exacerbation - prn albuterol Medically optimized for discharge
--- NOTE | 2018-09-08 11:45 | P.DS ---
Providers Date of admission: 09/02/18 08:09 Expected date of discharge: 09/08/18 Attending physician: Manuelito Wyatt Consults: 09/02/18 11:11 Consult Physician Routine Consulting Provider: Abbie Bean Consult Reason/Comments: Medical management Do you want consulting provider notified?: Yes Primary care physician: [facility] Course: 52-year-old male who is status post right colectomy. Pathology positive for primary appendiceal adenocarcinoma. 18 mesenteric lymph nodes negative for metastasis. Patient doing well postoperatively. His pain is controlled on oral medications. Tolerating diet and having bowel movements. No nausea or vomiting. Vital signs stable. He is stable for discharge home today. He is to see oncology outpatient for further recommendations regarding pathology. Please see EMR for further hospital course details. Discharge Diagnosis: 1. s/p right colectomy for visualized mass on colonoscopy, pathology positive for primary appendiceal adenocarcinoma Nurse practitioner note has been reviewed by physician. Signing provider agrees with the documented findings, assessment, and plan of care. Patient Condition at Discharge: Stable Plan - Discharge Summary Discharge Rx Participant: No New Discharge Prescriptions: New Hydrocodone/Acetaminophen [Uvalda 5-325] 1 tab PO Q4HR PRN 3 Days #18 tab PRN Reason: Pain Continue ALPRAZolam [Xanax] 0.5 mg PO BID PRN PRN Reason: Anxiety amLODIPine [Norvasc] 5 mg PO DAILY Lisinopril [Zestril] 10 mg PO DAILY Cyclobenzaprine [Flexeril] 5 - 10 mg PO TID PRN PRN Reason: Muscle Spasm Discontinued metroNIDAZOLE [Flagyl] 500 mg PO Q8HR #30 tab Cefuroxime Axetil [Ceftin] 500 mg PO DAILY Dicyclomine [Bentyl] 20 mg PO QID #15 tablet Discharge Medication List ALPRAZolam [Xanax] 0.5 mg PO BID PRN 08/11/18 [History] Cyclobenzaprine [Flexeril] 5 - 10 mg PO TID PRN 08/11/18 [History] Lisinopril [Zestril] 10 mg PO DAILY 08/11/18 [History] amLODIPine [Norvasc] 5 mg PO DAILY 08/11/18 [History] Hydrocodone/Acetaminophen [Uvalda 5-325] 1 tab PO Q4HR PRN 3 Days #18 tab 09/05/18 [Rx] Follow up Appointment(s)/Referral(s): Joaquin Aquino MD [STAFF PHYSICIAN] - 1 Week (May schedule appointment with any provider at office for evaluation. office will call patient) Urbano Arguello MD [Primary Care Provider] - 09/17/18 9:30 am Manuelito Wyatt MD [STAFF PHYSICIAN] - 09/16/18 1:30 pm Patient Instructions/Handouts: Colectomy (DC), Colectomy Diet (DC) Activity/Diet/Wound Care/Special Instructions: No driving while taking Uvalda No lifting over 10 pounds You may shower. No soaking or tub baths Very light activity until you are reevaluated at your follow up appointment with your surgeon Discharge Disposition: HOME SELF-CARE
== END 2018-09-08 11:34 | disposition home or self-care (01) | DRG 331 ==
LOC: 2ORMAIN 08:09 → 4SSUR 11:39
PROVIDERS: ADMIT Surgery; ATTEND Surgery
PROC: 0DTF0ZZ Resection of Right Large Intestine, Open Approach (ICD-10-PCS; principal; 2018-09-02 09:55)
DX: C18.1 Malignant neoplasm of appendix (principal); E78.5 Hyperlipidemia, unspecified; J45.909 Unspecified asthma, uncomplicated; I10 Essential (primary) hypertension; M10.9 Gout, unspecified; M19.90 Unspecified osteoarthritis, unspecified site; K57.90 Diverticulosis of intestine, part unspecified, without perforation or abscess without bleeding; Z79.899 Other long term (current) drug therapy; Z98.890 Other specified postprocedural states; Z86.73 Personal history of transient ischemic attack (TIA), and cerebral infarction without residual deficits; Z90.2 Acquired absence of lung [part of]; Z98.52 Vasectomy status; Z88.5 Allergy status to narcotic agent; Z83.2 Family history of diseases of the blood and blood-forming organs and certain disorders involving the immune mechanism; Z80.0 Family history of malignant neoplasm of digestive organs
CPT/HCPCS: 80048; 83735; 84100; 85025; 85027; 86850; 86900; 86901; 88305; 88309

== ENCOUNTER 2018-09-30 06:21 | Day surgery (SDC) | payer MEDICARE ==
[2018-09-29 09:54] VITALS: BMI 28.1
[~2018-09-30 06:21] MED LIST changes: +DEXAMETHASONE SOD PHOSPHATE 10 MG/ML 1 ML VIAL IV ONE; +HYDROmorphone 0.5 MG/0.5 ML SYRINGE IVP PRN; +LACTATED RINGERS 1,000 ML IV SCH; +LIDOCAINE 1% 20 ML VIAL (10MG/ML) FOR IV START INTRADERMA PRN; +MIDAZOLAM 2 MG/2 ML VIAL IV PRN; +ONDANSETRON 4 MG/2 ML VIAL IVP ONE; +Pre Op ABX Message 1 EACH MISC MISCELLANE ONE; +SCOPOLAMINE 1.5MG/72HR PATCH TRANSDERM ONE; -ceFAZolin IN SWFI 2 GM/20 ML SYRINGE IVP ONE; -metroNIDAZOLE-NS PMX 500 MG in SALINE 1 100ML.BAG IVPB ONE
[2018-09-30 06:40] VITALS: TEMP 98.2
[2018-09-30] MEDS ORDERED: LACTATED RINGERS 1,000 ML IV ONE (06:50)
[2018-09-30] MEDS ORDERED: BUPIVACAINE (PF) 0.5% 30 ML VIAL SQ ONE ×2 (07:32→08:14)
[2018-09-30] MEDS ORDERED: IOHEXOL 180 MG/ML 1 ML ML MISCELLANE ONE ×2 (07:32→08:14)
[2018-09-30] MEDS ORDERED: HEPARIN SODIUM,PORCINE 100 UNIT/ML 5 ML VIAL IV ONE ×2 (07:32→08:14)
[2018-09-30] MEDS ORDERED: MIDAZOLAM 2 MG/2 ML VIAL ONE (07:45)
[2018-09-30] MEDS ORDERED: LIDOCAINE 1% INJ 10MG/ML (20 ML MDV) ONE (07:45)
[2018-09-30] MEDS ORDERED: PROPOFOL 10 MG/ML 20 ML VIAL IV ONE (07:45)
[2018-09-30] MEDS ORDERED: fentaNYL (PF) 50 MCG/ML 2 ML AMP ONE (07:45)
[2018-09-30] MEDS ORDERED: KETAMINE 10 MG/ML 20 ML VIAL ONE (07:45)
[2018-09-30] MEDS ORDERED: ceFAZolin 1,000 MG VIAL IVPB ONE (07:47)
[2018-09-30] MEDS ORDERED: SODIUM CHLORIDE 0.9% 50 ML with ceFAZolin 2,000 MG IV ONE ×2 (07:47)
--- NOTE | 2018-09-30 09:11 | P.OP ---
Date of Procedure: 09/30/18 Preoperative Diagnosis: Appendiceal cancer Postoperative Diagnosis: Appendiceal cancer Procedure(s) Performed: Insertion of left subclavian Port-A-Cath Anesthesia: DONALD Surgeon: Manuelito Wyatt Pathology: none sent Condition: stable Disposition: PACU Description of Procedure: PROCEDURE: The patient was placed on the operating table in the supine position. he received MAC anesthetic. The [leftt] chest was prepped and draped in the usual sterile fashion. The skin underneath the right clavicle was ane sthetized with 1% Xylocaine and using Seldinger technique, the right subclavian vein was cannulized. The wire was placed through the needle and positioned under fluoroscopy. Next, the needle was removed and the port site was anesthetized with 1% Xylocaine. Skin was incised with #15 blade and port pocket was made using blunt and sharp dissection. Following this the catheter was attached to the sport and the port was flushed. The port was positioned into the pocket site and was secured with 3-0 Vicryl suture. The catheter was then brought out through the wire site and then the dilator sheath was placed over the wire and the dilator and the wire were removed. The catheter was placed through the sheath and the sheath was removed. The port was flushed with hep- lock solution. Skin was closed with interrupted 3-0 Vicryl sutures. Steri- Strips were applied. The patient tolerated the procedure well. The patient was sent to recovery room for chest x-ray after the procedure.
--- NOTE | 2018-09-30 09:13 | P.GSHP ---
History of Present Illness H&P Date: 09/30/18 Chief Complaint: Appendiceal cancer This a 52-year-old male who's recent diagnosis appendiceal cancer. Patient presents today for Port-A-Cath insertion. Past Medical History Past Medical History: Asthma, Cancer, Hyperlipidemia, Hypertension, Osteoarthritis (OA) Additional Past Medical History / Comment(s): Diverticulosis, appendicitis History of Any Multi-Drug Resistant Organisms: None Reported Past Surgical History: Heart Catheterization, Orthopedic Surgery Additional Past Surgical History / Comment(s): rotator cuff surg., Partial pneumonectomy right as an , HYDROCELE, VASECTOMY, right sided partial colectomy in August 2018. Past Anesthesia/Blood Transfusion Reactions: No Reported Reaction Smoking Status: Never smoker - Past Family History Mother Family Medical History: Deep Vein Thrombosis (DVT) Father Family Medical History: Cancer Additional Family Medical History / Comment(s): colon Medications and Allergies Home Medications Medication Instructions Recorded Confirmed Type ALPRAZolam [Xanax] 0.5 mg PO BID PRN 08/11/18 09/29/18 History Cyclobenzaprine [Flexeril] 5 - 10 mg PO TID PRN 08/11/18 09/29/18 History Lisinopril [Zestril] 10 mg PO DAILY 08/11/18 09/29/18 History amLODIPine [Norvasc] 5 mg PO DAILY 08/11/18 09/29/18 History Allergies Allergy/AdvReac Type Severity Reaction Status Date / Time hydrocodone bitartrate Allergy Itching Verified 09/29/18 09:48 [From Vicodin] Surgical - Exam Vital Signs Temp Pulse Resp BP Pulse Ox 98.2 F 64 18 116/78 98 09/30/18 06:39 09/30/18 06:39 09/30/18 06:39 09/30/18 06:39 09/30/18 06:39 - General well developed, well nourished, no distress - Eyes PERRL - ENT normal pinna - Neck no masses - Respiratory normal expansion - Abdomen Abdomen: soft, non tender Assessment and Plan Assessment: Appendiceal cancer. We'll perform Port-A-Cath insertion.
[2018-09-30 09:21] VITALS: RESP 16
--- NOTE | 2018-09-30 09:50 | XR ---
EXAMINATION TYPE: XR chest 1V portable DATE OF EXAM: 09/30/2018 COMPARISON: NONE HISTORY: Status post Port-A-Cath insertion TECHNIQUE: Single frontal view of the chest is obtained. FINDINGS: There is a left-sided Mediport has been placed terminating in the proximal superior vena c eric. No postprocedural pneumothorax is seen. Cardiomediastinal silhouette appears upper limits of nor mal. Pulmonary hyperinflation represents underlying COPD with flattening of the diaphragms. Postsurgi renetta changes of the right shoulder. IMPRESSION: Insertion of a left-sided Mediport without postprocedural pneumothorax.
[2018-09-30 10:06] VITALS: BP 108/74; PULSE 67
--- NOTE | 2018-09-30 10:49 | FL ---
Fluoroscopy INDICATION: Pain FINDINGS: Fluoroscopy time: 4 seconds. Images obtained: 1. IMPRESSIONS: 1. Documentation of fluoroscopy.
== END 2018-09-30 10:24 | disposition home or self-care (01) ==
LOC: OR 06:21
PROVIDERS: ATTEND Surgery
DX: C18.1 Malignant neoplasm of appendix (principal); I10 Essential (primary) hypertension; E78.5 Hyperlipidemia, unspecified; J45.909 Unspecified asthma, uncomplicated; M19.90 Unspecified osteoarthritis, unspecified site; K57.90 Diverticulosis of intestine, part unspecified, without perforation or abscess without bleeding; Z79.899 Other long term (current) drug therapy; Z88.5 Allergy status to narcotic agent; Z90.49 Acquired absence of other specified parts of digestive tract; Z90.2 Acquired absence of lung [part of]; Z98.52 Vasectomy status; Z80.0 Family history of malignant neoplasm of digestive organs; Z82.49 Family history of ischemic heart disease and other diseases of the circulatory system
CPT/HCPCS: 36561; 77001; C1788; J2250; J1644; J1642; J1100; Q9965; J2405; J0690; J2001; J3010; J2704; 71045

== ENCOUNTER 2019-01-12 06:31 | Day surgery (SDC) | payer MEDICARE ==
[2019-01-08 11:32] VITALS: BMI 28.1
[~2019-01-12 06:31] MED LIST changes: -HYDROmorphone 0.5 MG/0.5 ML SYRINGE IVP PRN; -Pre Op ABX Message 1 EACH MISC MISCELLANE ONE; -SCOPOLAMINE 1.5MG/72HR PATCH TRANSDERM ONE; +fentaNYL (PF) 50 MCG/ML 2 ML AMP IV PRN
[2019-01-12] MEDS ORDERED: LIDOCAINE 2%-EPI 1:100,000 20 ML VIAL SQ ONE ×4 (07:25→08:13)
[2019-01-12 07:32] VITALS: RESP 16; TEMP 97.7
[2019-01-12] MEDS ORDERED: MIDAZOLAM 2 MG/2 ML VIAL ONE (07:55)
[2019-01-12] MEDS ORDERED: PROPOFOL 10 MG/ML 20 ML VIAL IV ONE (07:55)
[2019-01-12] MEDS ORDERED: KETAMINE 10 MG/ML 20 ML VIAL ONE (07:55)
[2019-01-12] MEDS ORDERED: fentaNYL (PF) 50 MCG/ML 2 ML AMP ONE (07:55)
--- NOTE | 2019-01-12 08:58 | P.GSHP ---
History of Present Illness H&P Date: 01/12/19 Chief Complaint: History of colon cancer 's of 53-year-old male presents history: Cancer. Patient is today for removal of Port-A-Cath. Past Medical History Past Medical History: Asthma, Cancer, Hyperlipidemia, Hypertension, Osteoarthr itis (OA) Additional Past Medical History / Comment(s): Diverticulosis, COLON CANCER FROM APPENDICITIS, chem for 4 months, last one approx 12/25/18, states Left arm, "feels " numb, neuropathy magaly feet. states possible TIA, unknown History of Any Multi-Drug Resistant Organisms: None Reported Past Surgical History: Appendectomy, Bowel Resection, Heart Catheterization, Hernia Repair, Orthopedic Surgery Additional Past Surgical History / Comment(s): rotator cuff surg., Partial pneumonectomy right as an infant, HYDROCELE, VASECTOMY, right sided partial colectomy in August 2018. left subclavian port a cath 09/30/18 Past Anesthesia/Blood Transfusion Reactions: No Reported Reaction Smoking Status: Never smoker - Past Family History Mother Family Medical History: Deep Vein Thrombosis (DVT) Father Family Medical History: Cancer Additional Family Medical History / Comment(s): colon Medications and Allergies Home Medications Medication Instructions Recorded Confirmed Type ALPRAZolam [Xanax] 0.5 mg PO BID PRN 08/11/18 01/12/19 History Lisinopril [Zestril] 10 mg PO BID 08/11/18 01/12/19 History amLODIPine [Norvasc] 5 mg PO BID 08/11/18 01/12/19 History Baclofen 10 mg PO TID PRN 11/26/18 01/12/19 History Ondansetron Odt [Zofran Odt] 4 mg PO Q8HR PRN 01/12/19 01/12/19 History Allergies Allergy/AdvReac Type Severity Reaction Status Date / Time hydrocodone bitartrate Allergy Itching Verified 01/12/19 07:34 [From Vicodin] Surgical - Exam Vital Signs Temp Pulse Resp BP Pulse Ox 97.7 F 60 16 128/77 97 01/12/19 07:20 01/12/19 07:20 01/12/19 07:20 01/12/19 07:20 01/12/19 07:20 - General well developed, no distress - Eyes PERRL - ENT normal pinna - Neck no masses - Respiratory Left subclavian Port-A-Cath normal expansion - Cardiovascular Rhythm: regular - Abdomen Abdomen: soft, non tender Assessment and Plan Assessment: We'll perform rule Port-A-Cath
--- NOTE | 2019-01-12 09:00 | P.OP ---
Date of Procedure: 01/12/19 Preoperative Diagnosis: History of colon cancer Postoperative Diagnosis: History of colon cancer Procedure(s) Performed: Removal of Port-A-Cath Anesthesia: MAC Surgeon: Manuelito Wyatt Estimated Blood Loss (ml): 5 Pathology: none sent Condition: stable Disposition: PACU Description of Procedure: The patient's placed on the operating table in supine position. He received IV sedation. The site of Port-A-Cath was prepped and draped usual sterile fashion. The area was anesthetized 1% local Xylocaine. Skin was incised and using blunt and sharp dissection and electrocautery the cath was dissected free. The wounds hemostasis. Skin was closed interrupted 3-0 Monocryl suture. Dermabond was applied. Patient top she will well and was sent to recovery in stable condition.
[2019-01-12 09:02] VITALS: BP 129/77; PULSE 65
== END 2019-01-12 09:20 | disposition home or self-care (01) ==
LOC: OR 06:31
PROVIDERS: ATTEND Surgery
DX: Z45.2 Encounter for adjustment and management of vascular access device (principal); Z85.038 Personal history of other malignant neoplasm of large intestine; I10 Essential (primary) hypertension; J45.909 Unspecified asthma, uncomplicated; E78.5 Hyperlipidemia, unspecified; M19.90 Unspecified osteoarthritis, unspecified site; K57.90 Diverticulosis of intestine, part unspecified, without perforation or abscess without bleeding; G62.9 Polyneuropathy, unspecified; Z88.5 Allergy status to narcotic agent; Z79.899 Other long term (current) drug therapy; Z90.49 Acquired absence of other specified parts of digestive tract; Z98.890 Other specified postprocedural states; Z90.2 Acquired absence of lung [part of]; Z92.21 Personal history of antineoplastic chemotherapy; Z98.52 Vasectomy status; Z82.49 Family history of ischemic heart disease and other diseases of the circulatory system; Z80.0 Family history of malignant neoplasm of digestive organs
CPT/HCPCS: 36590; J2250; J1644; J1100; J2405; J3010; J2704

== ENCOUNTER → 2019-01-13 | Outpatient (CLI) | payer MEDICARE ==
[2019-01-13 13:52] LABS: African American GFR (CKD) >90 (>60 ml/min/1.73 sqM); Blood Urea Nitrogen 9 mg/dL (9-20); Non-African American GFR(CKD) 80 (>60 ml/min/1.73 sqM)
--- NOTE | 2019-01-13 15:16 | CT ---
EXAMINATION TYPE: CT ChestAbdPelvis w con DATE OF EXAM: 01/13/2019 COMPARISON: HISTORY: Follow up for colon cancer. CT DLP: 1064.2 mGycm CONTRAST: CT scan of the chest, abdomen and pelvis is performed with Oral Contrast and with IV Contrast, patien t injected with 100ml mL of Isovue 300. CT Chest: LUNGS: The lungs are clear and free of infiltrate or atelectasis. No pulmonary nodule or mass is det ected. No pleural effusion or CT evidence of interstitial lung disease. MEDIASTINUM: Thoracic aorta is of normal caliber. The heart is not enlarged. No evidence for media stinal mass or adenopathy. HILAR STRUCTURES: No evidence for mass. No hilar adenopathy is appreciated. OTHER: No significant abnormality. CONTRAST CT ABDOMEN AND PELVIS FINDINGS: LIVER/GB: No calcified gallstones. No space occupying hepatic lesion. Biliary tree is of normal ca liber. PANCREAS: No inflammation. No distinct mass. SPLEEN: No splenic enlargement. No lesion seen. ADRENALS: No nodule. No thickening. KIDNEYS/BLADDER: No hydronephrosis. No nephrolithiasis. No distinct renal mass. BOWEL: Previously noted cecal mass has been removed. Partial right colectomy noted. Anastomotic site is unremarkable. No evidence recurrent or residual mass. GENITAL ORGANS: No gross abnormality. LYMPH NODES: No greater than 1cm abdominal or pelvic lymph nodes are appreciated. AORTA: No significant abnormality. OSSEOUS STRUCTURES: No significant abnormality is seen. OTHER: No significant additional abnormality is seen. IMPRESSION: 1. No evidence for recurrent or residual disease. No evidence for metastatic disease at this time.
== END ==
LOC: RADCTMAIN 12:47
PROVIDERS: ATTEND Internal Medicine Hematology & Oncology
DX: C18.1 Malignant neoplasm of appendix (principal); Z88.5 Allergy status to narcotic agent
CPT/HCPCS: 82565; 84520; 71260; 74177; 36415; Q9967

== ENCOUNTER 2020-01-07 07:55 | Day surgery (SDC) | payer BC, MEDICARE ==
[2020-01-05 11:40] VITALS: BMI 28.8
[~2020-01-07 07:55] MED LIST changes: -DEXAMETHASONE SOD PHOSPHATE 10 MG/ML 1 ML VIAL IV ONE; -HEPARIN SODIUM,PORCINE 5,000 UNIT/ML 1 ML VIAL SQ ONE; -LIDOCAINE 1% 20 ML VIAL (10MG/ML) FOR IV START INTRADERMA PRN; -MIDAZOLAM 2 MG/2 ML VIAL IV PRN; -ONDANSETRON 4 MG/2 ML VIAL IVP ONE; -fentaNYL (PF) 50 MCG/ML 2 ML AMP IV PRN
[2020-01-07 08:14] VITALS: TEMP 97.6
--- NOTE | 2020-01-07 08:35 | P.GSHP ---
History of Present Illness H&P Date: 01/07/20 Chief Complaint: History of colonic Cancer This is a 54-year-old male who presents today for colonoscopy. His previous history of colon cancer. Past Medical History Past Medical History: Asthma, Cancer, Hyperlipidemia, Hypertension, Os teoarthritis (OA) Additional Past Medical History / Comment(s): Diverticulosis, COLON CANCER FROM APPENDICITIS, chem for 4 months, last one approx 12/25/18, numb, neuropathy magaly feet. states possible TIA History of Any Multi-Drug Resistant Organisms: None Reported Past Surgical History: Appendectomy, Bowel Resection, Heart Catheterization, Hernia Repair, Orthopedic Surgery Additional Past Surgical History / Comment(s): LT FOOT SX, RT rotator cuff surg., Partial pneumonectomy right as an , HYDROCELE, VASECTOMY, right sided partial colectomy in August 2018. left subclavian port a cath 09/30/18, COLONOSCOPY Past Anesthesia/Blood Transfusion Reactions: No Reported Reaction Smoking Status: Never smoker - Past Family History Mother Family Medical History: Deep Vein Thrombosis (DVT) Father Family Medical History: Cancer Additional Family Medical History / Comment(s): colon Medications and Allergies Home Medications Medication Instructions Recorded Confirmed Type ALPRAZolam [Xanax] 0.5 mg PO BID PRN 08/11/18 01/05/20 History amLODIPine [Norvasc] 5 mg PO BID 08/11/18 01/05/20 History lisinopriL [Zestril] 20 mg PO DAILY 01/05/20 01/05/20 History Allergies Allergy/AdvReac Type Severity Reaction Status Date / Time hydrocodone bitartrate Allergy Itching Verified 01/07/20 08:09 [From Vicodin] Surgical - Exam Vital Signs Temp Pulse Resp BP Pulse Ox 97.6 F 72 18 133/89 100 01/07/20 08:11 01/07/20 08:11 01/07/20 08:11 01/07/20 08:11 01/07/20 08:11 - General well developed, well nourished, no distress - Eyes PERRL - ENT normal pinna - Neck no masses - Respiratory normal expansion - Cardiovascular Rhythm: regular - Abdomen Abdomen: soft, non tender Assessment and Plan Assessment: History of colon cancer we'll perform colonoscopy.
--- NOTE | 2020-01-07 08:45 | P.OP ---
Date of Procedure: 01/07/20 Preoperative Diagnosis: History of colon cancer Postoperative Diagnosis: Diverticulosis Normal colonoscopy status post right colectomy Procedure(s) Performed: Colonoscopy Anesthesia: MAC Surgeon: Manuelito Wyatt Pathology: none sent Condition: stable Disposition: PACU Description of Procedure: The patient's placed on the endoscopy table in the lateral position. He received IV sedation. Digital rectal exam was performed which revealed no abnormalities. The flexible colonoscope was then placed patient anus passed throughout the entire colon. Patient had a previous right colectomy. The ileocolonic anastomosis visualized. The transverse colon appeared normal the descending colon a few scattered diverticula. In the; is more diverticula seen. Scope was then brought back the rectum and this appeared normal. Scope was withdrawn for patient.
[2020-01-07 09:12] VITALS: BP 124/71; PULSE 61; RESP 17
[2020-01-07] MEDS ORDERED: PROPOFOL 10 MG/ML 20 ML VIAL IV ONE (09:35)
[2020-01-07] MEDS ORDERED: fentaNYL (PF) 50 MCG/ML 2 ML AMP ONE (09:35)
[2020-01-07] MEDS ORDERED: MIDAZOLAM 2 MG/2 ML VIAL ONE (09:35)
== END 2020-01-07 09:26 | disposition home or self-care (01) ==
LOC: ORWHC2ENDO 07:55
PROVIDERS: ATTEND Surgery
DX: Z08 Encounter for follow-up examination after completed treatment for malignant neoplasm (principal); Z85.038 Personal history of other malignant neoplasm of large intestine; K57.30 Diverticulosis of large intestine without perforation or abscess without bleeding; J45.909 Unspecified asthma, uncomplicated; I10 Essential (primary) hypertension; M19.90 Unspecified osteoarthritis, unspecified site; E78.5 Hyperlipidemia, unspecified; Z92.21 Personal history of antineoplastic chemotherapy; G62.9 Polyneuropathy, unspecified; Z98.890 Other specified postprocedural states; Z90.49 Acquired absence of other specified parts of digestive tract; Z98.52 Vasectomy status; Z82.49 Family history of ischemic heart disease and other diseases of the circulatory system; Z80.0 Family history of malignant neoplasm of digestive organs; Z79.899 Other long term (current) drug therapy; Z88.5 Allergy status to narcotic agent
CPT/HCPCS: 45378; J2250; J3010; J2704

== ENCOUNTER → 2020-03-08 | Outpatient (CLI) | payer BC, MEDICARE ==
--- NOTE | 2020-03-08 09:16 | NM ---
Nuclear medicine hepatobiliary scan. HISTORY: Pain. DOSAGE: The patient received 8 oz Ensure Plus and 4.7 mCi of Technetium 99m Choletec. FINDINGS: There is heterogeneous hepatic extraction. The gallbladder is seen by 20 minutes. There i s biliary to bowel clearance by 20 minutes. Ejection fraction is 84%. IMPRESSION: 1. No evidence of cholecystitis. 2. Heterogeneous uptake by the liver is nonspecific correlate with LFTs and ultrasound or CT to exclu de intraparenchymal diffuse disease or mass. 3. Ejection fraction of 84% can be associated with hyperdynamic gallbladder correlate clinically.
== END | disposition home or self-care (01) ==
LOC: RADNMMAIN 07:04
PROVIDERS: ATTEND Family Medicine
DX: R94.5 Abnormal results of liver function studies (principal); R10.11 Right upper quadrant pain
CPT/HCPCS: 78226; A9537

== ENCOUNTER 2020-03-18 06:25 | Day surgery (SDC) | payer BC, MEDICARE ==
[2020-03-16 18:17] VITALS: BMI 29.3
[~2020-03-18 06:25] MED LIST changes: +ACETAMINOPHEN TAB 500 MG TAB PO PRN; +DEXAMETHASONE SOD PHOSPHATE 4 MG/ML 1 ML VIAL IV ONE; +HEPARIN SODIUM,PORCINE 5,000 UNIT/ML 1 ML VIAL SQ PRN; +LIDOCAINE 1% (10MG/ML) FOR IV START INTRADERMA PRN; +MIDAZOLAM 2 MG/2 ML VIAL IV PRN; +ONDANSETRON 4 MG/2 ML VIAL IVP ONE
[2020-03-18] MEDS ORDERED: HYDROmorphone 0.5 MG/0.5 ML SYRINGE IVP PRN (07:00)
[2020-03-18] MEDS ORDERED: PROPOFOL 10 MG/ML 20 ML VIAL IV ONE (07:59)
[2020-03-18] MEDS ORDERED: SUCCINYLCHOLINE CHLORIDE 100 MG/5 ML SYR IV ONE (07:59)
[2020-03-18] MEDS ORDERED: MIDAZOLAM 2 MG/2 ML VIAL ONE (07:59)
[2020-03-18] MEDS ORDERED: ROCURONIUM 10 MG/ML (10 ML VIAL) IV ONE (07:59)
[2020-03-18] MEDS ORDERED: NEOSTIGMINE 1 MG/ML 10 ML VIAL ONE (07:59)
[2020-03-18] MEDS ORDERED: fentaNYL (PF) 50 MCG/ML 2 ML AMP ONE (07:59)
[2020-03-18] MEDS ORDERED: KETOROLAC 15 MG/ML 1 ML VIAL ONE (07:59)
[2020-03-18] MEDS ORDERED: GLYCOPYRROLATE 0.2 MG/ML 2 ML VIAL ONE (07:59)
[2020-03-18] MEDS ORDERED: BUPIVACAINE (PF) 0.25% 30 ML VIAL SQ ONE (08:13)
[2020-03-18 09:08] VITALS: TEMP 96.9
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
--- NOTE | 2020-03-18 09:20 | P.OP ---
Date of Procedure: 03/18/20 Preoperative Diagnosis: Cholecystitis Postoperative Diagnosis: Cholecystitis Metastatic colon cancer to liver Procedure(s) Performed: Laparoscopic cholecystectomy Liver biopsy Anesthesia: DONALD Surgeon: Manuelito Wyatt Estimated Blood Loss (ml): 10 Pathology: other (Gallbladder, liver biopsy) Condition: stable Disposition: PACU Description of Procedure: The patient was placed on the operating table. The patient received a general endotracheal tube anesthesia. The patients abdomen was prepped and draped in the usual sterile fashion. Through an infraumbilical stab incision, the fascia of the anterior abdominal wall was grasped with a pair of Kochers and then the Veress needle was placed in the peritoneal cavity. Position of the Veress needle was confirmed with positive drop test. The abdomen was then insufflated. After adequate insufflation, the 10 mm trocar was placed in the peritoneal cavity. Following this the laparoscope was placed in the peritoneal cavity. The patient was placed in the head-up, right side up position and then a 5 mm trocar was placed in the right lateral and right subcostal position under direct visualization. A 8 mm trocar was placed in the epigastric position. The liver was examined. There appeared to be evidence of hepatic metastases. There are multiple metastases noted liver. Using a tooth biopsy forcep several liver biopsies performed. A large cautery was used to control bleeding. The gallbladder was grasped in the fundus and infundibulum. Traction on the gallbladder was placed in the lateral and the cephalad positions. The triangle of Calot was visualized.. The cystic duct was bluntly dissected until the union of the cystic duct and common bile duct was seen. A critical view of safety was achieved. The cystic duct was then divided and sealed with the Harmonic scissors. A PDS Endoloop was then placed throughout the cystic duct stump. The cystic artery divided and sealed with the Harmonic scissors. The gallbladder was then removed from the liver bed using Harmonic scissors. The gallbladder was then extracted through the epigastric port site. Operative field was checked for any bleeding spots and Harmonic scissors was used to coagulate the liver bed. The abdomen was irrigated. The trocars were removed. The skin was closed using interrupted 3-0 Vicryl suture. Dermabond dressing were applied. The patient tolerated the procedure well.
[2020-03-18 11:05] VITALS: BP 123/81; PULSE 55; RESP 16
== END 2020-03-18 11:09 | disposition home or self-care (01) ==
LOC: OR 06:25
PROVIDERS: ATTEND Surgery
DX: K81.1 Chronic cholecystitis (principal); C78.7 Secondary malignant neoplasm of liver and intrahepatic bile duct; J45.909 Unspecified asthma, uncomplicated; E78.5 Hyperlipidemia, unspecified; I10 Essential (primary) hypertension; M19.90 Unspecified osteoarthritis, unspecified site; K57.90 Diverticulosis of intestine, part unspecified, without perforation or abscess without bleeding; G62.9 Polyneuropathy, unspecified; Z85.038 Personal history of other malignant neoplasm of large intestine; Z87.09 Personal history of other diseases of the respiratory system; Z92.21 Personal history of antineoplastic chemotherapy; Z90.49 Acquired absence of other specified parts of digestive tract; Z98.890 Other specified postprocedural states; Z90.2 Acquired absence of lung [part of]; Z98.52 Vasectomy status; Z79.899 Other long term (current) drug therapy; Z88.5 Allergy status to narcotic agent; Z98.811 Dental restoration status; Z86.73 Personal history of transient ischemic attack (TIA), and cerebral infarction without residual deficits; Z82.49 Family history of ischemic heart disease and other diseases of the circulatory system; Z80.0 Family history of malignant neoplasm of digestive organs
CPT/HCPCS: 47562; 47379; 88304; 88342; 88307; 88341; J2250; J1644; J1100; J2710; J0690; J2405; J3010; J1885; J0330; J2704; J1170; 88313

== ENCOUNTER → 2020-03-25 | Outpatient (CLI) | payer BC, MEDICARE ==
--- NOTE | 2020-03-25 14:21 | PE ---
Nuclear medicine PET/CT HISTORY: HISTORY: Colorectal carcinoma, initial Patient received 7.6 mCi F-18 FDG intravenously in delayed scanning was performed from the skull base to the mid thighs. Localization and attenuation correction CT scan was performed. Correlation to CT chest abdomen pelvis 01/13/2019 Chest and neck: Aorta measures 4.1 cm proximally. There is no evident pleural or pericardial effusion . Multiple lung nodules are present, at least 12 nodules are present on the left, the largest measure s approximately 15 mm in left upper lobe. At least 11 nodules are present on the right, nodules appea r smoothly marginated, left upper lobe nodule shows an SUV of 4.2, nodules do not show hypermetabolic uptake likely due to small size. There is no mediastinal, axillary, or hilar adenopathy. No cervica l or supraclavicular adenopathy. ABDOMEN: Multiple peripherally active nodules are scattered throughout the liver, greater than 20 nod ules are present, vague areas of low-attenuation are present on the CT, SUV approximately 8.6. e abno rmal mesenteric node, axial image 171 shows associated hypermetabolic uptake, SUV 4.6. Along the righ t paracolic gutter there is abnormal soft tissue which extends into the right lower quadrant adjacent to the Silastic muscle, irregular soft tissue shows spiculated margins and extends to the iliac keyonna a, along the psoas and along the peritoneal margin in the right lower quadrant which is an interval f inding, there is associated hypermetabolic uptake, SUV is 6.8. Additional soft tissue nodule within t he mesenteric fat, axial image 167 deep to the rectus abdominis muscle shows associated uptake, SUV 4 .4 There is no ascites. No inguinal adenopathy. Extensive diverticular change present. Osseous structures: No suspicious uptake IMPRESSION: Metastatic disease as described.
== END | disposition home or self-care (01) ==
LOC: RADPETMAIN 10:03
PROVIDERS: ATTEND Internal Medicine Hematology & Oncology
DX: C18.1 Malignant neoplasm of appendix (principal); Z92.21 Personal history of antineoplastic chemotherapy
CPT/HCPCS: 78815; A9552

== ENCOUNTER 2020-03-30 06:38 | Day surgery (SDC) | payer BC, MEDICARE ==
[2020-03-29 08:38] VITALS: BMI 29.6
[~2020-03-30 06:38] MED LIST changes: -HEPARIN SODIUM,PORCINE 5,000 UNIT/ML 1 ML VIAL SQ PRN; -MIDAZOLAM 2 MG/2 ML VIAL IV PRN; +Pre Op ABX Message 1 EACH MISC MISCELLANE ONE
[2020-03-30] MEDS: HEPARIN SODIUM,PORCINE 5,000 UNIT/ML 1 ML VIAL SQ PRN ×2 (07:45→07:58)
[2020-03-30] MEDS ORDERED: HEPARIN SODIUM,PORCINE 100 UNIT/ML 5 ML VIAL IV ONE (08:04)
[2020-03-30] MEDS ORDERED: BUPIVACAINE (PF) 0.5% 30 ML VIAL SQ ONE (08:05)
[2020-03-30] MEDS ORDERED: PROPOFOL 10 MG/ML 20 ML VIAL IV ONE (08:16)
[2020-03-30] MEDS ORDERED: LIDOCAINE 1% INJ 10MG/ML (20 ML MDV) ONE (08:16)
[2020-03-30] MEDS ORDERED: fentaNYL (PF) 50 MCG/ML 2 ML AMP ONE (08:16)
[2020-03-30] MEDS ORDERED: MIDAZOLAM 2 MG/2 ML VIAL ONE (08:16)
[2020-03-30] MEDS ORDERED: SODIUM CHLORIDE 0.9% 50 ML with ceFAZolin 2,000 MG IV ONE ×2 (08:20)
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
[2020-03-30 09:04] VITALS: TEMP 97
--- NOTE | 2020-03-30 09:04 | P.OP ---
Date of Procedure: 03/30/20 Preoperative Diagnosis: Metastatic colon cancer Postoperative Diagnosis: Metastatic colon cancer Procedure(s) Performed: Right subclavian Port-A-Cath Anesthesia: DONALD Surgeon: Manuelito Wyatt Estimated Blood Loss (ml): 5 Pathology: none sent Condition: stable Disposition: PACU Description of Procedure: PROCEDURE: The patient was placed on the operating table in the supine position. She received MAC anesthetic. The [right] chest was prepped and draped in the usual sterile fashion. The skin underneath the right clavicle was anesthetized with 1% Xylocaine and using Seldinger technique, the right subclavian vein was cannulized. The wire was placed through the needle and po sitioned under fluoroscopy. Next, the needle was removed and the port site was anesthetized with 1% Xylocaine. Skin was incised with #15 blade and port pocket was made using blunt and sharp dissection. Following this the catheter was attached to the sport and the port was flushed. The port was positioned into the pocket site and was secured with 3-0 Vicryl suture. The catheter was then brought out through the wire site and then the dilator sheath was placed over the wire and the dilator and the wire were removed. The catheter was placed through the sheath and the sheath was removed. The port was flushed with hep- lock solution. Skin was closed with interrupted 3-0 Vicryl sutures. Steri- Strips were applied. The patient tolerated the procedure well. The patient was sent to recovery room for chest x-ray after the procedure.
--- NOTE | 2020-03-30 09:24 | FL ---
Fluoroscopy History: MISSY ASSIST FOR A PORTACATH INSERT PT WITH LIVER CA AND AN HX OF BOWEL CA. PORTACATH INSERT. FL TIME OF 0.02 MINS
--- NOTE | 2020-03-30 09:54 | XR ---
EXAMINATION TYPE: XR chest 1V portable DATE OF EXAM: 03/30/2020 HISTORY: Shortness of breath. COMPARISON: September 30, 2018 TECHNIQUE: Single view of the chest is submitted. FINDINGS: Demonstrated are scattered senescent parenchymal change. Right-sided Port-A-Cath is in place with it s distal tip overlying the SVC. No evidence for pneumothorax. There is no evidence for focal infiltrate. The heart is stable. Hilar and mediastinal structures are within normal limits. Degenerative changes are seen of the dorsal spine. IMPRESSION: 1. Chronic changes without evidence for acute pulmonary disease.
[2020-03-30 10:25] VITALS: BP 114/73; PULSE 55; RESP 18
== END 2020-03-30 10:58 | disposition home or self-care (01) ==
LOC: OR 06:38
PROVIDERS: ATTEND Surgery
DX: C18.9 Malignant neoplasm of colon, unspecified (principal); C78.7 Secondary malignant neoplasm of liver and intrahepatic bile duct; I10 Essential (primary) hypertension; E78.5 Hyperlipidemia, unspecified; J45.909 Unspecified asthma, uncomplicated; M19.90 Unspecified osteoarthritis, unspecified site; K57.90 Diverticulosis of intestine, part unspecified, without perforation or abscess without bleeding; G62.9 Polyneuropathy, unspecified; F41.9 Anxiety disorder, unspecified; Z88.5 Allergy status to narcotic agent; Z79.1 Long term (current) use of non-steroidal anti-inflammatories (NSAID); Z79.899 Other long term (current) drug therapy; Z92.21 Personal history of antineoplastic chemotherapy; Z98.52 Vasectomy status; Z98.890 Other specified postprocedural states; Z90.49 Acquired absence of other specified parts of digestive tract; Z82.49 Family history of ischemic heart disease and other diseases of the circulatory system; Z80.0 Family history of malignant neoplasm of digestive organs
CPT/HCPCS: 77001; 71045; 36561; C1788; J2250; J1644; J1642; J1100; J2405; J0690; J2001; J3010; J2704

== ENCOUNTER 2020-12-08 08:35 | Day surgery (SDC) | payer BC, MEDICARE ==
[2020-12-07 09:12] VITALS: BMI 30.1
[~2020-12-08 08:35] MED LIST changes: -ACETAMINOPHEN TAB 500 MG TAB PO PRN; -DEXAMETHASONE SOD PHOSPHATE 4 MG/ML 1 ML VIAL IV ONE; -LIDOCAINE 1% (10MG/ML) FOR IV START INTRADERMA PRN; -ONDANSETRON 4 MG/2 ML VIAL IVP ONE; -Pre Op ABX Message 1 EACH MISC MISCELLANE ONE
[2020-12-08 08:54] VITALS: TEMP 98
[2020-12-08] MEDS ORDERED: LACTATED RINGERS 1,000 ML IV ONE (08:54)
[2020-12-08] MEDS ORDERED: PROPOFOL 10 MG/ML 20 ML VIAL IV ONE (09:47)
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
--- NOTE | 2020-12-08 10:04 | P.OP ---
Date of Procedure: 12/08/20 Preoperative Diagnosis: GI bleed History of colon cancer Postoperative Diagnosis: Diverticulosis External hemorrhoids Procedure(s) Performed: Colonoscopy Anesthesia: MAC Surgeon: Manuelito Wyatt Pathology: none sent Condition: stable Disposition: PACU Description of Procedure: The patient's placed on the endoscopy table in the lateral position. He received IV sedation. Digital rectal exam was performed which revealed a few external hemorrhoids. The flexible colonoscope was then placed patient anus passed throughout the entire colon. The patient appears right colectomy. The ileocolonic anastomosis visualized. The transverse colon, descending colon appeared normal in the sigmoid colon there was moderate diverticular changes. Scope was brought back the rectum this appeared normal. Scope was withdrawn the anus and external hemorrhoids were noted. There is no evidence of GI bleed. Presumed patient's bleeding may have been due to diverticulosis.
[2020-12-08 10:09] VITALS: RESP 16
[2020-12-08 10:22] VITALS: BP 125/74; PULSE 52
== END 2020-12-08 10:45 | disposition home or self-care (01) ==
LOC: ORWHC2ENDO 08:35
PROVIDERS: ATTEND Surgery
DX: K92.2 Gastrointestinal hemorrhage, unspecified (principal); K57.30 Diverticulosis of large intestine without perforation or abscess without bleeding; K64.4 Residual hemorrhoidal skin tags; Z85.038 Personal history of other malignant neoplasm of large intestine; J45.909 Unspecified asthma, uncomplicated; E78.5 Hyperlipidemia, unspecified; I10 Essential (primary) hypertension; M19.90 Unspecified osteoarthritis, unspecified site; G62.9 Polyneuropathy, unspecified; Z82.49 Family history of ischemic heart disease and other diseases of the circulatory system; Z80.0 Family history of malignant neoplasm of digestive organs; Z79.899 Other long term (current) drug therapy; Z88.5 Allergy status to narcotic agent
CPT/HCPCS: 45378; J2704

== ENCOUNTER 2021-03-16 19:34 | Emergency (ER) | payer BC, MEDICARE ==
[2021-03-16 19:42] VITALS: BP 142/97; PULSE 59; RESP 20; TEMP 97.9
[2021-03-16] MEDS ORDERED: AMOXICILLIN 500 MG CAP PO STA (20:09)
[2021-03-16] MEDS ORDERED: ERYTHROMYCIN 5 MG/GM OPHTH OINT 1 GM TUBE LEFT EYE STA (20:09)
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
== END 2021-03-16 21:05 | disposition home or self-care (01) ==
LOC: EC 19:34 → SUPCPDRO 19:34 → EC 21:05
DX: G51.0 Bell's palsy (principal); H66.92 Otitis media, unspecified, left ear; I10 Essential (primary) hypertension; J45.909 Unspecified asthma, uncomplicated; E78.5 Hyperlipidemia, unspecified; F41.9 Anxiety disorder, unspecified; Z79.899 Other long term (current) drug therapy
CPT/HCPCS: 99283

== ENCOUNTER 2021-10-30 12:18 | Inpatient (IN) | payer BC, MEDICARE ==
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
[2021-10-30] MEDS ORDERED: KETOROLAC 15 MG/ML 1 ML VIAL IVP STA (15:37)
[2021-10-30] MEDS ORDERED: SODIUM CHLORIDE 0.9% 1,000 ML IV STA (15:37)
[2021-10-30] MEDS ORDERED: ONDANSETRON 4 MG/2 ML VIAL IVP STA (15:46)
[2021-10-30 16:03] LABS: Basophils # (A) 0.1 k/uL (0-0.2); Basophils % (A) 0 %; Eosinophils # (A) 0.2 k/uL (0-0.7); Eosinophils % (A) 2 %; HCT 52.2 % (39.0-53.0); HGB 16.5 gm/dL (13.0-17.5); Lymphocytes # (A) 2.4 k/uL (1.0-4.8); Lymphocytes % (A) 20 %; MCH 28.8 pg (25.0-35.0); MCHC 31.7 g/dL (31.0-37.0); MCV 90.7 fL (80.0-100.0); Mean Platelet Volume 8.8; Monocytes # (A) 0.5 k/uL (0-1.0); Monocytes % (A) 4 %; Neutrophils # (A) 8.6 k/uL (1.3-7.7); Neutrophils % (A) 73 %; Platelet Count 264 k/uL (150-450); RBC 5.75 m/uL (4.30-5.90); RDW 13.4 % (11.5-15.5); WBC 11.8 k/uL (3.8-10.6)
[2021-10-30 16:22] LABS: ALT 40 U/L (4-49); AST 76 U/L (17-59); African American GFR (CKD) >90 (>60 ml/min/1.73 sqM); Albumin 4.6 g/dL (3.5-5.0); Alkaline Phosphatase 196 U/L (38-126); Amylase 65 U/L (30-110); Anion Gap 10 mmol/L; Blood Urea Nitrogen 6 mg/dL (9-20); Calcium 9.6 mg/dL (8.4-10.2); Carbon Dioxide 30 mmol/L (22-30); Chloride 96 mmol/L (98-107); Glucose 92 mg/dL (74-99); Lipase 45 U/L (23-300); Non-African American GFR(CKD) >90 (>60 ml/min/1.73 sqM); Potassium 4.5 mmol/L (3.5-5.1); Sodium 136 mmol/L (137-145); Total Bilirubin 0.7 mg/dL (0.2-1.3); Total Protein 8.3 g/dL (6.3-8.2)
--- NOTE | 2021-10-30 17:05 | CT ---
EXAMINATION TYPE: CT abdomen pelvis wo con DATE OF EXAM: 10/30/2021 COMPARISON: PET CT scan 03/25/2020 HISTORY: Liver, colon, lung CA. Adbominal pain. CT DLP: 665.5 mGycm Automated exposure control for dose reduction was used. Images obtained from the diaphragm to the floor the pelvis with no contrast. There are multiple nodular densities in the partially visualized lung bases without calcification. Th sumeet measure up to 1.7 cm. No pleural effusion. Heart size is normal. No pericardial effusion. There are numerous partially calcified masses throughout the liver with vertebral size. These measure up to 6 cm. Spleen is intact. There is no pancreatic mass. There is no adrenal mass. Kidneys of normal size. No hydronephrosis. Ureters are not dilated. No retr operitoneal adenopathy. Bladder is almost empty. There are multiple diverticula in the sigmoid colon. No diverticulitis. No free fluid in the pelvis. No inguinal hernia. There is no retroperitoneal suly opathy. There is no mesenteric edema. No ascites or free air. There are some mildly dilated fluid-filled smal l bowel loops in the lower abdomen. These measure up to 3.8 cm. The terminal ileum is not dilated. Tr ansition point not seen. There is previous surgery at the splenic flexure of the colon. The lumbar vertebrae have normal alignment. No compression fracture. The bony pelvis is intact. The h ip joints are intact. There is 1 mm calculus lower pole left kidney. IMPRESSION: Multiple pulmonary nodules are increased in size compared to the old exam and consistent with metasta tic disease. Numerous partially calcified liver masses consistent with treated metastatic disease. Masses are incr eased in size compared to old exam. Right colon surgery. There is evidence of partial mechanical small bowel obstruction. Transition poin t not identified. Colonic diverticulosis without diverticulitis.
[2021-10-30] MEDS ORDERED: MORPHINE SULFATE 4 MG/ML SYRINGE IVP STA (17:14)
[2021-10-30] MEDS ORDERED: NALOXONE 0.4 MG/ML 1 ML VIAL IV PRN (17:44)
[2021-10-30] MEDS ORDERED: NON FORMULARY DRUG (Urea 20% Cream 1 APPLIC) TOPICAL PRN (18:25)
[2021-10-30] MEDS ORDERED: ACETAMINOPHEN TAB 325 MG TAB PO PRN (18:25)
[2021-10-30] MEDS ORDERED: ALPRAZolam 0.5 MG TAB PO PRN (18:25)
[2021-10-30] MEDS ORDERED: LIDOCAINE-PRILOCAINE 2.5-2.5% CREAM 5 GM TUBE TOPICAL PRN (18:25)
[2021-10-30] MEDS: SODIUM CHLORIDE 0.9% 1,000 ML IV SCH (18:29)
[2021-10-30] MEDS: METOCLOPRAMIDE 5 MG/ML 2 ML VIAL IVP SCH (18:29)
[2021-10-30] MEDS ORDERED: OLANZapine 5 MG TAB PO SCH (18:30)
[2021-10-30] MEDS ORDERED: SENNOSIDES 8.6 MG TAB PO PRN (18:33)
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
[2021-10-30] MEDS ORDERED: PANTOPRAZOLE 40 MG/10 ML VIAL IVP ONE (19:18)
[2021-10-30] MEDS ORDERED: FAMOTIDINE 20 MG/2 ML VIAL IV STA (19:19)
[2021-10-30] MEDS: HYDROCORTISONE 1% CREAM 30 GM TUBE TOPICAL SCH (20:05)
[2021-10-30] MEDS: HYDROmorphone 1 MG/ML 1 ML SYRINGE IVP PRN ×2 (20:12→23:01)
[2021-10-30] MEDS: MORPHINE SULFATE ER 15 MG TABLET PO SCH (21:13)
[2021-10-30] MEDS: MORPHINE SULFATE ER 60 MG TABLET PO SCH (21:14)
[2021-10-30] MEDS: TETRAHYDROZOLINE 0.05% OPHTH DROPS 15 ML BTL BOTH EYES SCH (21:17)
[2021-10-30] MEDS: NON FORMULARY DRUG (Urea 20% Cream 1 APPLIC) TOPICAL SCH (21:18)
[2021-10-31] MEDS: METOCLOPRAMIDE 5 MG/ML 2 ML VIAL IVP SCH ×3 (01:50→20:58)
[2021-10-31] MEDS: HYDROmorphone 1 MG/ML 1 ML SYRINGE IVP PRN ×4 (02:29→20:10)
[2021-10-31] MEDS: SODIUM CHLORIDE 0.9% 1,000 ML IV SCH ×3 (05:50→21:00)
[2021-10-31] MEDS: ONDANSETRON 4 MG/2 ML VIAL IVP PRN (06:22)
[2021-10-31] MEDS: amLODIPine 5 MG TAB PO SCH (08:39)
[2021-10-31] MEDS: PANTOPRAZOLE 40 MG TABLET PO SCH (08:40)
[2021-10-31] MEDS: MAGNESIUM OXIDE 400 MG TAB PO SCH (08:40)
[2021-10-31] MEDS: MORPHINE SULFATE ER 15 MG TABLET PO SCH ×2 (08:40→20:59)
[2021-10-31] MEDS: lisinopriL 10 MG TAB PO SCH (08:41)
[2021-10-31] MEDS: ENOXAPARIN 40 MG/0.4 ML SYRINGE SQ SCH (08:41)
[2021-10-31] MEDS: METHYLPHENIDATE HCL 5 MG TAB PO SCH ×2 (09:25→20:58)
[2021-10-31] MEDS: MORPHINE SULFATE ER 60 MG TABLET PO SCH ×2 (09:26→20:58)
[2021-10-31 09:34] LABS: African American GFR (CKD) 115.7 (60.0-200.0); Anion Gap 7.6 mmol/L (10.00-18.00); BUN/Creat Ratio 10.75 Ratio (12.00-20.00); Blood Urea Nitrogen 8.6 mg/dL (9.0-27.0); Carbon Dioxide 27.4 mmol/L (20.0-27.5); Magnesium 2.1 mg/dL (1.5-2.4); Non-African American GFR(CKD) 99.9 (60.0-200.0); Potassium 4.7 mmol/L (3.5-5.5)
--- NOTE | 2021-10-31 10:26 | P.PN ---
Subjective Progress Note Date: 10/31/21 Hospital course: Patient is a Physical exam: Vital signs reviewed and stable. General: Nontoxic, no distress and appears stated age. Derm: Skin warm and dry, normal coloration for ethnicity. Head: Atraumatic, normocephalic and symmetric. Eyes: EOMs intact, no lid lag, and anicteric sclera Mouth: no lip lesions, mucus membranes moist Cardiovascular: regular rate and rhythm with normal S1S2, no murmur, positive posterior tibial pulses bilaterally, and cap refill < 2 seconds. Lungs: Respirations even, regular, and unlabored on room air. Lungs CTA bilaterally, no rhonchi, no rales, no wheezing, and no accessory muscle usage. Abdominal: soft, nontender to palpation, no guarding, no appreciable organomegaly Ext: ROM intact. No gross muscle atrophy, no edema, no contractures Neuro: Speech clear, face symmetrical and CN II-XII grossly intact with no noted focal neuro deficits Psych: Alert and oriented to person, place, time, and situation. Appropriate and pleasant affect. Assessment and Plan of Care: CODE STATUS:[] DVT prophylaxis: [] Discussed with: [] Anticipated discharge date: [] Anticipated discharge place: [] A total of [] minutes was spent on the care of this complex patient more than 50% of the time was spent in counseling and care coordination. Objective - Vital Signs Vital signs: Vital Signs Temp 97.8 F 10/30/21 12:22 Pulse 66 10/31/21 07:26 Resp 18 10/31/21 07:26 BP 152/100 10/31/21 07:26 Pulse Ox 95 10/31/21 07:26 FiO2 Intake & Output 10/30/21 10/31/21 10/31/21 18:59 06:59 18:59 Weight 89.811 kg - Labs CBC & Chem 7: 10/30/21 15:43 10/31/21 05:12 Labs: Abnormal Lab Results - Last 24 Hours (Table) 10/30/21 10/30/21 10/31/21 Range/Units 15:43 15:43 05:12 WBC 11.8 H (3.8-10.6) k/uL Neutrophils # 8.6 H (1.3-7.7) k/uL Sodium 136 L (137-145) mmol/L Chloride 96 L (98-107) mmol/L Anion Gap 7.60 L (10.00-18.00) mmol/L BUN 6 L 8.6 L (9-20) mg/dL BUN/Creatinine Ratio 10.75 L (12.00-20.00) Ratio AST 76 H (17-59) U/L Alkaline Phosphatase 196 H (38-126) U/L Total Protein 8.3 H (6.3-8.2) g/dL
[2021-10-31] MEDS ORDERED: HYDROmorphone 1 MG/ML 1 ML SYRINGE ONE (15:22)
[2021-10-31] MEDS ORDERED: ONDANSETRON 4 MG/2 ML VIAL ONE (15:22)
[2021-10-31] MEDS ORDERED: METOCLOPRAMIDE 5 MG/ML 2 ML VIAL ONE (15:22)
[2021-10-31] MEDS: TETRAHYDROZOLINE 0.05% OPHTH DROPS 15 ML BTL BOTH EYES SCH ×2 (19:35→20:16)
[2021-10-31] MEDS: NON FORMULARY DRUG (Urea 20% Cream 1 APPLIC) TOPICAL SCH ×3 (19:35→20:16)
[2021-10-31] MEDS: HYDROCORTISONE 1% CREAM 30 GM TUBE TOPICAL SCH ×2 (19:35→20:16)
[2021-11-01] MEDS: SODIUM CHLORIDE 0.9% 1,000 ML IV SCH ×4 (01:29→20:48)
[2021-11-01] MEDS: METOCLOPRAMIDE 5 MG/ML 2 ML VIAL IVP SCH ×3 (04:54→18:11)
[2021-11-01] MEDS: MORPHINE SULFATE ER 60 MG TABLET PO SCH ×2 (08:31→20:25)
[2021-11-01] MEDS: lisinopriL 10 MG TAB PO SCH (08:31)
[2021-11-01] MEDS: MAGNESIUM OXIDE 400 MG TAB PO SCH (08:31)
[2021-11-01] MEDS: METHYLPHENIDATE HCL 5 MG TAB PO SCH ×2 (08:31→16:25)
[2021-11-01] MEDS: MORPHINE SULFATE ER 15 MG TABLET PO SCH ×2 (08:31→20:24)
[2021-11-01] MEDS: PANTOPRAZOLE 40 MG TABLET PO SCH (08:31)
[2021-11-01] MEDS: TETRAHYDROZOLINE 0.05% OPHTH DROPS 15 ML BTL BOTH EYES SCH ×3 (08:32→20:26)
[2021-11-01] MEDS: ENOXAPARIN 40 MG/0.4 ML SYRINGE SQ SCH (08:32)
[2021-11-01] MEDS: HYDROCORTISONE 1% CREAM 30 GM TUBE TOPICAL SCH ×2 (08:32→20:26)
[2021-11-01] MEDS: NON FORMULARY DRUG (Urea 20% Cream 1 APPLIC) TOPICAL SCH ×3 (08:33→20:12)
[2021-11-01] MEDS: amLODIPine 5 MG TAB PO SCH (08:35)
[2021-11-01] MEDS: HYDROmorphone 1 MG/ML 1 ML SYRINGE IVP PRN ×4 (09:13→22:46)
--- NOTE | 2021-11-01 12:29 | P.PN ---
Subjective Progress Note Date: 11/01/21 Hospital course: Patient is a a pleasant 56-year-old male with a past medical history of colon cancer with metastatic disease status post multiple bowel resections currently on active chemotherapy. He presented to the emergency department on 10/30/21 with a chief complaint of worsening abdominal pain accompanied by abdominal bloating, nausea and vomiting. CT abdomen and pelvis revealing multiple pulmonary nodules increased in size compared to previous exam, numerous partially calcified liver masses consistent with treated metastatic disease masses are increased in size compared to previous exam, and evidence of partial mechanical small bowel obstruction. Physical exam: Patient seen and fully evaluated at bedside this morning. He was started on clear liquid diet yesterday evening and tolerated well as he reports no further episodes of nausea or vomiting. However patient does report having increased pain with oral intake and general surgery consulted for evaluation at this time. Patient does report that he is passing flatus and does have hyperactive bowel sounds in all 4 quadrants. Patient denies bowel movement during hospitalization and reports last bowel movement being 10/29/21. Vital signs reviewed and stable. General: Nontoxic, no distress and appears stated age. Derm: Skin warm and dry, normal coloration for ethnicity. Head: Atraumatic, normocephalic and symmetric. Eyes: EOMs intact, no lid lag, and anicteric sclera Mouth: no lip lesions, mucus membranes moist Cardiovascular: regular rate and rhythm with normal S1S2, no murmur, positive posterior tibial pulses bilaterally, and cap refill < 2 seconds. Lungs: Respirations even, regular, and unlabored on room air. Lungs CTA bilaterally, no rhonchi, no rales, no wheezing, and no accessory muscle usage. Abdominal: soft distended, with slight diffuse tenderness upon palpation, no guarding, no appreciable organomegaly. Bowel sounds hyperactive in all 4 quadrants. Ext: ROM intact. No gross muscle atrophy, no edema, no contractures Neuro: Speech clear, face symmetrical and CN II-XII grossly intact with no noted focal neuro deficits Psych: Alert and oriented to person, place, time, and situation. Appropriate and pleasant affect. Assessment and Plan of Care: Partial bowel obstruction, mechanical Abdominal pain Nausea and vomiting Mild leukocytosis -Likely secondary to adhesions from prior surgeries -Continue IV fluids -Symptomatic care and pain control -Antiemetics -Diet was advanced to clear liquids yesterday evening. Patient reporting increased pain with oral intake and general surgery was consulted. -Gen. surgery evaluated recommending continued clear liquid diet at this time. Colon cancer with metastatic disease -Hold Capecitabine as patient unable to tolerate oral intake -Oncology consulted for further recommendations with regards to chemo and notified of increased sizes of nodules and masses. Hypertension -Monitor vital signs and continue daily medication regimen with lisinopril and amlodipine. CODE STATUS: Full code DVT prophylaxis: Lovenox Discussed with: patient and RN Anticipated discharge date: likely 2-3 days pending clinical course Anticipated discharge place: home A total of 35 minutes was spent on the care of this complex patient more than 50% of the time was spent in counseling and care coordination. I reviewed the documentation as provided by the LIZ above, who is the original author of this note. I agree with the documented assessment and plan, with the following changes: none Objective - Vital Signs Vital signs: Vital Signs Temp 98.6 F 11/01/21 07:15 Pulse 57 L 11/01/21 07:15 Resp 16 11/01/21 07:15 BP 142/88 11/01/21 07:15 Pulse Ox 95 11/01/21 07:15 FiO2 Intake & Output 10/31/21 11/01/21 11/01/21 18:59 06:59 18:59 Intake Total 10 Balance 10 Weight 89.811 kg Intake: IV 10 Invasive Line 1 10 Other: Voiding Method Toilet # Voids 1 # Bowel Movements 0 - Labs CBC & Chem 7: 10/30/21 15:43 10/31/21 05:12
[2021-11-01 13:45] VITALS: BMI 30.1
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
[2021-11-02] MEDS: METOCLOPRAMIDE 5 MG/ML 2 ML VIAL IVP SCH ×2 (01:56→08:59)
[2021-11-02] MEDS: SODIUM CHLORIDE 0.9% 1,000 ML IV SCH (02:02)
[2021-11-02] MEDS: ONDANSETRON 4 MG/2 ML VIAL IVP PRN (06:13)
[2021-11-02] MEDS: HYDROmorphone 1 MG/ML 1 ML SYRINGE IVP PRN ×2 (06:25→12:58)
[2021-11-02 08:00] VITALS: BP 154/101; RESP 16; TEMP 97.3
[2021-11-02] MEDS: amLODIPine 5 MG TAB PO SCH (08:58)
[2021-11-02] MEDS: MORPHINE SULFATE ER 15 MG TABLET PO SCH (08:58)
[2021-11-02] MEDS: MAGNESIUM OXIDE 400 MG TAB PO SCH (08:58)
[2021-11-02] MEDS: MORPHINE SULFATE ER 60 MG TABLET PO SCH (08:58)
[2021-11-02] MEDS: NON FORMULARY DRUG (Urea 20% Cream 1 APPLIC) TOPICAL SCH (08:59)
[2021-11-02] MEDS: TETRAHYDROZOLINE 0.05% OPHTH DROPS 15 ML BTL BOTH EYES SCH (08:59)
[2021-11-02] MEDS: PANTOPRAZOLE 40 MG TABLET PO SCH (08:59)
[2021-11-02] MEDS: HYDROCORTISONE 1% CREAM 30 GM TUBE TOPICAL SCH (08:59)
[2021-11-02] MEDS: lisinopriL 10 MG TAB PO SCH (08:59)
[2021-11-02] MEDS: ENOXAPARIN 40 MG/0.4 ML SYRINGE SQ SCH (08:59)
[2021-11-02] MEDS: METHYLPHENIDATE HCL 5 MG TAB PO SCH (08:59)
[2021-11-02 10:00] VITALS: PULSE 62
--- NOTE | 2021-11-02 13:13 | P.DS ---
Providers Date of admission: 10/30/21 17:21 Expected date of discharge: 11/02/21 Attending physician: Abbie Bean DO Consults: 11/01/21 12:46 Consult Physician Routine Consulting Provider: Manuelito Wyatt Consult Reason/Comments: partial bowel obstruction, colon cancer with mets Do you want consulting provider notified?: Yes 11/01/21 14:30 Consult Physician Routine Consulting Provider: Joaquin Aquino Consult Reason/Comments: colon cancer with mets, CT revealing increased sizes of nodules/masses Do you want consulting provider notified?: Yes Primary care physician: MELISSA Randolph Hospital Course: Discharge Diagnosis: Partial bowel obstruction, mechanical. Resolved. Patient seen and evaluated by general surgery clearing patient from their standpoint. Patient having normal soft formed bowel movements without difficulty and tolerating oral intake with no further episodes of nausea or vomiting. Abdominal pain, resolved Nausea and vomiting, resolved Mild leukocytosis, likely reactive Colon cancer with metastatic disease. Resume Capecitabine and continue to foll ow up outpatient with oncologist for continued management of chemotherapy and management of increased sizes of nodules and masses. Hypertension. Monitor vital signs and continue daily medication regimen with lisinopril and amlodipine. Hospital Course: Patient is a a pleasant 56-year-old male with a past medical history of colon cancer with metastatic disease status post multiple bowel resections currently on active chemotherapy. He presented to the emergency department on 10/30/21 with a chief complaint of worsening abdominal pain accompanied by abdominal bloating, nausea and vomiting. CT abdomen and pelvis revealing multiple pulmonary nodules increased in size compared to previous exam, numerous partially calcified liver masses consistent with treated metastatic disease masses are increased in size compared to previous exam, and evidence of partial mechanical small bowel obstruction. Patient was admitted under services of consultation to Gen. surgery and oncology. Patient received bowel rest and IV fluid hydration resulting in resolution of partial bowel obstruction. Patient having normal soft formed bowel movements and has had full resolution of previously reported abdominal pain, nausea, and vomiting. General surgery clearing patient from their perspective. Oncology evaluated, patient to follow-up outpatient in their office for further testing. Patient is medically stable at this time in stable for discharge home. Physical exam: Vital signs reviewed and stable. General: Nontoxic, no distress and appears stated age. Derm: Skin warm and dry, normal coloration for ethnicity. Head: Atraumatic, normocephalic and symmetric. Eyes: EOMs intact, no lid lag, and anicteric sclera Mouth: no lip lesions, mucus membranes moist Cardiovascular: regular rate and rhythm with normal S1S2, no murmur, positive posterior tibial pulses bilaterally, and cap refill < 2 seconds. Lungs: Respirations even, regular, and unlabored on room air. Lungs CTA bilaterally, no rhonchi, no rales, no wheezing, and no accessory muscle usage. Abdominal: soft distended, nontender upon palpation, no guarding, no appreciable organomegaly. Bowel sounds hyperactive in all 4 quadrants. Ext: ROM intact. No gross muscle atrophy, no edema, no contractures Neuro: Speech clear, face symmetrical and CN II-XII grossly intact with no noted focal neuro deficits Psych: Alert and oriented to person, place, time, and situation. Appropriate and pleasant affect. A total of 38 minutes of time were spent preparing this complex discharge summary. Pt was discharged on 11/02/21 at 1:02 PM. I reviewed the documentation as provided by the LIZ above, who is the original author of this note. I agree with the documented assessment and plan, with the following changes: none Patient Condition at Discharge: Stable Plan - Discharge Summary Discharge Rx Participant: No New Discharge Prescriptions: Continue ALPRAZolam [Xanax] 0.5 mg PO DAILY PRN PRN Reason: Anxiety amLODIPine [Norvasc] 5 mg PO DAILY Tetrahydrozoline 0.05% Ophth [Visine Eye Drops] 1 drop BOTH EYES TID Prochlorperazine [Compazine] 10 mg PO Q6H PRN PRN Reason: Nausea And Vomiting Loperamide HCl [Loperamide] 2 mg PO QID PRN PRN Reason: Diarrhea Lidocaine-Prilocaine Cream [Emla Cream 2.5%/2.5%] 1 applic TOPICAL DAILY PRN PRN Reason: 1 hour prior to port access Ibuprofen [Motrin Ib] 600 mg PO Q6H PRN PRN Reason: Pain Hydrocortisone Cream [Hydrocortisone 2.5% Cream] 1 applic TOPICAL BID HYDROmorphone [Dilaudid] 4 mg PO Q4H PRN PRN Reason: Pain Urea 20% Cream 1 applic TOPICAL TID Slow-Mag 71.5mg 143 mg PO DAILY Pantoprazole [Protonix] 40 mg PO DAILY Ondansetron Odt [Zofran ODT] 8 mg PO Q8H PRN PRN Reason: Nausea OLANZapine [ZyPREXA] 5 mg PO DIRECTED Naloxone HCl [Narcan] 4 mg NASAL DIRECTED PRN PRN Reason: overdose Morphine Sulfate ER [Ms Contin] 15 mg PO Q12H Morphine Sulfate ER [Ms Contin] 60 mg PO Q12H Methylphenidate HCl [Ritalin] 5 mg PO BID methocarbamoL [Robaxin] 500 mg PO QID PRN PRN Reason: Muscle Spasm lisinopriL [Zestril] 10 mg PO DAILY Lactulose 10 gm PO BID Capecitabine [Xeloda] 1,500 mg PO DIRECTED Acetaminophen Tab [Tylenol] 650 mg PO Q6H PRN PRN Reason: Pain Urea 20% Cream 1 applic TOPICAL DAILY PRN PRN Reason: Apply to hands/feet Discharge Medication List ALPRAZolam [Xanax] 0.5 mg PO DAILY PRN 08/11/18 [History] amLODIPine [Norvasc] 5 mg PO DAILY 08/11/18 [History] Acetaminophen Tab [Tylenol] 650 mg PO Q6H PRN 10/30/21 [History] Capecitabine [Xeloda] 1,500 mg PO DIRECTED 10/30/21 [History] HYDROmorphone [Dilaudid] 4 mg PO Q4H PRN 10/30/21 [History] Hydrocortisone Cream [Hydrocortisone 2.5% Cream] 1 applic TOPICAL BID 10/30/21 [History] Ibuprofen [Motrin Ib] 600 mg PO Q6H PRN 10/30/21 [History] Lactulose 10 gm PO BID 10/30/21 [History] Lidocaine-Prilocaine Cream [Emla Cream 2.5%/2.5%] 1 applic TOPICAL DAILY PRN 10/30/21 [History] Loperamide HCl [Loperamide] 2 mg PO QID PRN 10/30/21 [History] Methylphenidate HCl [Ritalin] 5 mg PO BID 10/30/21 [History] Morphine Sulfate ER [Ms Contin] 15 mg PO Q12H 10/30/21 [History] Morphine Sulfate ER [Ms Contin] 60 mg PO Q12H 10/30/21 [History] Naloxone HCl [Narcan] 4 mg NASAL DIRECTED PRN 10/30/21 [History] OLANZapine [ZyPREXA] 5 mg PO DIRECTED 10/30/21 [History] Ondansetron Odt [Zofran ODT] 8 mg PO Q8H PRN 10/30/21 [History] Pantoprazole [Protonix] 40 mg PO DAILY 10/30/21 [History] Prochlorperazine [Compazine] 10 mg PO Q6H PRN 10/30/21 [History] Slow-Mag 71.5mg 143 mg PO DAILY 10/30/21 [History] Tetrahydrozoline 0.05% Ophth [Visine Eye Drops] 1 drop BOTH EYES TID 10/30/21 [History] Urea 20% Cream 1 applic TOPICAL DAILY PRN 10/30/21 [History] Urea 20% Cream 1 applic TOPICAL TID 10/30/21 [History] lisinopriL [Zestril] 10 mg PO DAILY 10/30/21 [History] methocarbamoL [Robaxin] 500 mg PO QID PRN 10/30/21 [History] Follow up Appointment(s)/Referral(s): Joaquin Aquino MD [STAFF PHYSICIAN] - 1 Week (Office closed at time of discharge. Please call to make an appointment.) Alice Borges NPC [Primary Care Provider] - 11/14/21 10:30 am Manuelito Wyatt MD [STAFF PHYSICIAN] - 11/09/21 3:00 pm Patient Instructions/Handouts: Bowel Obstruction (DC) Activity/Diet/Wound Care/Special Instructions: Activity: As tolerated. Take breaks as needed. Diet: Resume regular diet. Special Instructions: Take all of your medications as directed and remember to keep all of your doctor's appointments and follow-up as needed. Thank you for allowing us to participate in your care, it was truly a pleasure having you for our patient!!! Discharge/Stand Alone Forms: Work/Release Restrictions Form Discharge Disposition: HOME SELF-CARE
--- NOTE | 2021-11-02 13:46 | P.PN ---
Subjective Progress Note Date: 11/02/21 CHIEF COMPLAINT: Partial small bowel obstruction HISTORY OF PRESENT ILLNESS: Patient is feeling better today. He had a large bowel movement. He is having flatus. Denies any nausea or vomiting. Tolerated clear liquid diet. Afebrile. PHYSICAL EXAM: VITAL SIGNS: Reviewed. GENERAL: Well-developed in no acute distress. HEENT: No sclera icterus. Extraocular movements grossly intact. Moist buccal mucosa. Head is atraumatic, normocephalic. ABDOMEN: Soft. Nondistended. Nontender. NEUROLOGIC: Alert and oriented. Cranial nerves II through XII grossly intact. ASSESSMENT: 1. Partial mechanical small bowel obstruction 2. History of colon cancer with metastatic disease status post right colectomy and currently undergoing chemotherapy PLAN: -Advance diet to full liquids and then as tolerated -Patient can be discharged from surgical standpoint Physician Miter Sawyer note has been reviewed by physician. Signing provider agrees with the documented findings, assessment, and plan of care. Objective - Vital Signs Vital signs: Vital Signs Temp 97.3 F L 11/02/21 07:58 Pulse 62 11/02/21 08:00 Resp 16 11/02/21 08:00 BP 154/101 11/02/21 07:58 Pulse Ox 93 L 11/02/21 07:58 FiO2 Intake & Output 11/01/21 11/02/21 11/02/21 18:59 06:59 18:59 Weight 89.811 kg Other: Voiding Method Toilet Toilet Toilet # Voids 3 2 - Labs CBC & Chem 7: 10/30/21 15:43 10/31/21 05:12
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
== END 2021-11-02 14:36 | disposition home or self-care (01) | DRG 375 ==
LOC: EC 12:18 → 5NMEDONC 17:21 → 4SSUR 10-31 19:56
PROVIDERS: ADMIT Internal Medicine; ATTEND Internal Medicine
DX: C18.1 Malignant neoplasm of appendix (principal); C78.00 Secondary malignant neoplasm of unspecified lung; C78.7 Secondary malignant neoplasm of liver and intrahepatic bile duct; K56.690 Other partial intestinal obstruction; D72.829 Elevated white blood cell count, unspecified; E78.5 Hyperlipidemia, unspecified; F41.9 Anxiety disorder, unspecified; G62.9 Polyneuropathy, unspecified; I10 Essential (primary) hypertension; J45.909 Unspecified asthma, uncomplicated; K57.30 Diverticulosis of large intestine without perforation or abscess without bleeding; Z79.899 Other long term (current) drug therapy; Z80.0 Family history of malignant neoplasm of digestive organs; Z85.038 Personal history of other malignant neoplasm of large intestine; Z90.49 Acquired absence of other specified parts of digestive tract; Z28.21 Immunization not carried out because of patient refusal; Z83.2 Family history of diseases of the blood and blood-forming organs and certain disorders involving the immune mechanism; Z71.3 Dietary counseling and surveillance
CPT/HCPCS: 36415; 74176; 80048; 80053; 82150; 83605; 83690; 83735; 85025; 96361; 96374; 96375; 96376; 99285